=== PATIENT | female | born 1965 | race Two or more races ===

== ENCOUNTER 2016-09-16 07:15 | Outpatient (CLI) | payer BC ==
[~2016-09-16 07:15] MED LIST: ALBU0.633 IH; LANS15CA18 PO
[2016-09-16 08:19] LABS: BASOPHILS % (AUTO) 0.3 % (0.0-2.0); EOSINOPHILS # (AUTO) 0.8 /CMM (0.0-0.7); EOSINOPHILS % (AUTO) 10.1 % (0.0-6.0); HEMATOCRIT 27 % (33-45); LYMPHOCYTES # (AUTO) 2.1 /CMM (0.8-4.8); LYMPHOCYTES % (AUTO) 27.2 % (20.0-44.0); MEAN CORPUSCULAR HEMOGLOBIN 18 PG (26.0-33.0); MEAN CORPUSCULAR HGB CONC 30 g/dl (31.0-36.0); MEAN CORPUSCULAR VOLUME 60 fL (82-100); MONOCYTES # (AUTO) 0.6 /CMM (0.1-1.30); MONOCYTES % (AUTO) 7.6 % (2.0-12.0); NEUTROPHILS # (AUTO) 4.3 /CMM (1.8-8.9); NEUTROPHILS % (AUTO) 54.8 % (43.0-81.0); PLATELET COUNT (AUTO) 408 /CMM (150-450); RDW COEFFICIENT OF VARIATION 20.4 (11.5-15.0); RED BLOOD CELL COUNT(AUTO) 4.48 MIL/uL (4.0-5.2); WHITE BLOOD COUNT (AUTO) 7.9 K/uL (4.3-11.0)
[2016-09-16 08:26] LABS: BILIRUBIN,TOTAL 0.2 mg/dL (0.2-1.0); TOTAL PROTEIN, SERUM 8.3 g/dL (6.4-8.2)
[2016-09-16 08:37] LABS: ALBUMIN 3.8 g/dL (3.4-5.0); CALCIUM, SERUM 8.4 mg/dL (8.5-10.1); CREATININE 0.6 mg/dL (0.6-1.3); MAGNESIUM 2.1 mg/dL (1.8-2.4)
[2016-09-16 08:40] LABS: FREE T4 (FREE THYROXINE) 1.06 ng/dL (0.76-1.46); THYROID STIMULATING HORMONE 1.95 uIU/mL (0.358-3.74)
[2016-09-16 09:47] LABS: APPEARANCE,URINE SL CLOUDY (CLEAR); BILIRUBIN,URINE NEGATIVE (NEGATIVE); BLOOD, URINE 3+ Ery/uL (NEGATIVE); COLOR,URINE YELLOW (YELLOW); KETONES,URINE NEGATIVE (NEGATIVE); LEUKOCYTE ESTERASE ,URINE 2+ (NEGATIVE); NITRITE, URINE NEGATIVE (NEGATIVE); PROTEIN,URINE NEGATIVE (NEGATIVE); UGLUCOSE NEGATIVE (NEGATIVE); UROBILINOGEN,URINE 0.2 EU/dL (0.2)
[2016-09-16 10:21] LABS: RBC,URINE 21-50 /HPF (0-2)
[2016-09-16 10:22] LABS: ADD URINE CULTURE YES; BACTERIA,URINE Few /HPF (None Seen); SQUAMOUS EPITHELIAL CELL,UR Moderate /HPF (None Seen)
[2016-09-16 11:21] LABS: BAND % (MANUAL) 4 % (0.0-5.0); EOSINOPHILS % (MANUAL) 7 % (0-4); LYMPHOCYTES % (MANUAL) 22 % (16-48); MONOCYTES % (MANUAL) 2 % (0-11.0); NEUTROPHILS % (MANUAL) 65 (42-76); PLATELET ESTIMATE INCREASED
[2016-09-16 11:22] LABS: ANISOCYTOSIS 1+; HYPOCHROMASIA 1+; OVALOCYTES 1+
== END 2016-09-16 23:59 | disposition home or self-care (01) ==
LOC: LAB 07:15
PROVIDERS: ATTEND Family Medicine
DX: E55.9 Vitamin D deficiency, unspecified (principal); R73.9 Hyperglycemia, unspecified
CPT/HCPCS: 36415; 80053-TC; 80061-TC; 81000-TC; 82306; 83735-TC; 84439-TC; 84443-TC; 85025-TC; 87086-TC

== ENCOUNTER 2016-11-07 07:54 | Outpatient (CLI) | payer BC | END 2016-11-07 23:59 | disposition home or self-care (01) | LOC: US 07:54 | PROVIDERS: ATTEND Family Medicine | DX: N88.8 Other specified noninflammatory disorders of cervix uteri (principal) | CPT/HCPCS: 76856-TC ==

== ENCOUNTER 2017-07-14 07:32 | Outpatient (CLI) | payer BC ==
[2017-07-14 08:23] LABS: BILIRUBIN,TOTAL 0.5 mg/dL (0.2-1.0); CALCIUM, SERUM 8.9 mg/dL (8.5-10.1); CREATININE 0.6 mg/dL (0.6-1.3); POTASSIUM 3.6 mmol/L (3.5-5.1); TOTAL PROTEIN, SERUM 8.8 g/dL (6.4-8.2)
[2017-07-14 08:27] LABS: T4 (THYROXINE) 10.4 ug/dL (4.7-13.3)
[2017-07-14 08:37] LABS: HEMATOCRIT 31 % (33-45); HEMOGLOBIN 9.3 g/dL (11.5-14.8); MEAN CORPUSCULAR HEMOGLOBIN 19 PG (26.0-33.0); MEAN CORPUSCULAR HGB CONC 30 g/dl (31.0-36.0); MEAN CORPUSCULAR VOLUME 62 fL (82-100); PLATELET COUNT (AUTO) 412 /CMM (150-450); RDW COEFFICIENT OF VARIATION 21.7 (11.5-15.0); RED BLOOD CELL COUNT(AUTO) 4.97 MIL/uL (4.0-5.2); WHITE BLOOD COUNT (AUTO) 6.2 K/uL (4.3-11.0)
[2017-07-14 08:43] LABS: APPEARANCE,URINE SL CLOUDY (CLEAR); BILIRUBIN,URINE NEGATIVE (NEGATIVE); BLOOD, URINE 3+ Ery/uL (NEGATIVE); COLOR,URINE YELLOW (YELLOW); KETONES,URINE NEGATIVE (NEGATIVE); LEUKOCYTE ESTERASE ,URINE NEGATIVE (NEGATIVE); NITRITE, URINE NEGATIVE (NEGATIVE); PROTEIN,URINE TRACE mg/dl (NEGATIVE); UGLUCOSE NEGATIVE (NEGATIVE); UROBILINOGEN,URINE 0.2 EU/dL (0.2)
[2017-07-14 08:48] LABS: THYROID STIMULATING HORMONE 1.188 uIU/mL (0.358-3.74)
[2017-07-14 09:13] LABS: BACTERIA,URINE Rare /HPF (None Seen); RBC,URINE 81-100 /HPF (0-2); SQUAMOUS EPITHELIAL CELL,UR Few /HPF (None Seen); WBC,URINE 0-2 /HPF (0-3)
[2017-07-14 14:48] LABS: BAND % (MANUAL) 2 % (0.0-5.0); EOSINOPHILS % (MANUAL) 5 % (0-4); LYMPHOCYTES % (MANUAL) 17 % (16-48); MONOCYTES % (MANUAL) 11 % (0-11.0); NEUTROPHILS % (MANUAL) 65 (42-76)
== END 2017-07-14 23:59 | disposition home or self-care (01) ==
LOC: LAB 07:32
PROVIDERS: ATTEND Family Medicine
DX: Z11.59 Encounter for screening for other viral diseases (principal); E55.9 Vitamin D deficiency, unspecified; R73.9 Hyperglycemia, unspecified; R06.02 Shortness of breath
CPT/HCPCS: 36415; 71046; 80053-TC; 80061-TC; 81000-TC; 82306; 84436-TC; 84443-TC; 85025-TC; 86803

== ENCOUNTER 2018-10-20 08:24 | Emergency (ER) | payer SELFPAY ==
[~2018-10-20] VITALS: Ht 157.5 cm; Wt 81.6 kg
--- NOTE | 2018-10-20 08:32 | NUR ---
AAOX3 C/O LEFT WRIST PAIN AFTER AN AGGRESSIVE/AGITATED GPS PATIENT GRAB HER LEFT WRIST. CMS WNL. RR IS EVEN AND UNLABORED WITH NAD NOTED. SKIN IS WARM AND DRY. AWAITING MD FOR EVAL.
--- NOTE | 2018-10-20 08:37 | NUR ---
DR PATTON AT BS FOR EVAL.
[2018-10-20] MEDS: IBUPROFEN 600 MG TABLET PO ONE (08:44)
[2018-10-20] MEDS ORDERED: IBUPROFEN 600 MG TABLET PO ONE (08:44)
[2018-10-20 08:46] VITALS: BP 138/78
--- NOTE | 2018-10-20 08:46 | NUR ---
Patient discharged to home in stable condition. Written and verbal after care instructions given. Patient verbalizes understanding of instruction.
== END 2018-10-20 08:47 | disposition home or self-care (01) ==
LOC: ER 08:31
DX: S63.592A Other specified sprain of left wrist, initial encounter (principal); J45.909 Unspecified asthma, uncomplicated; Z90.49 Acquired absence of other specified parts of digestive tract; Z79.899 Other long term (current) drug therapy; Z87.442 Personal history of urinary calculi; Y08.89XA Assault by other specified means, initial encounter; Y93.89 Activity, other specified; Y92.89 Other specified places as the place of occurrence of the external cause; Y99.8 Other external cause status

== ENCOUNTER 2020-03-02 08:11 | Outpatient (CLI) | payer BC ==
[2020-03-02 09:34] LABS: BASOPHILS # (AUTO) 0.1 /CMM (0.0-0.2); BASOPHILS % (AUTO) 1.1 % (0.0-2.0); EOSINOPHILS % (AUTO) 10.3 % (0.0-6.0); HEMATOCRIT 41 % (33-45); HEMOGLOBIN 13.3 g/dL (11.5-14.8); LYMPHOCYTES # (AUTO) 1.6 /CMM (0.8-4.8); LYMPHOCYTES % (AUTO) 25.9 % (20.0-44.0); MEAN CORPUSCULAR HGB CONC 33 g/dl (31.0-36.0); MEAN CORPUSCULAR VOLUME 85 fL (82-100); MONOCYTES # (AUTO) 0.6 /CMM (0.1-1.30); MONOCYTES % (AUTO) 9.4 % (2.0-12.0); NEUTROPHILS # (AUTO) 3.2 /CMM (1.8-8.9); NEUTROPHILS % (AUTO) 53.3 % (43.0-81.0); PLATELET COUNT (AUTO) 255 /CMM (150-450); RED BLOOD CELL COUNT(AUTO) 4.78 MIL/uL (4.0-5.2)
[2020-03-02 09:35] LABS: APPEARANCE,URINE CLEAR (CLEAR); BILIRUBIN,URINE NEGATIVE (NEGATIVE); BLOOD, URINE TRACE-INTA Ery/uL (NEGATIVE); COLOR,URINE YELLOW (YELLOW); KETONES,URINE NEGATIVE (NEGATIVE); LEUKOCYTE ESTERASE ,URINE SMALL (NEGATIVE); NITRITE, URINE NEGATIVE (NEGATIVE); PROTEIN,URINE NEGATIVE (NEGATIVE); UGLUCOSE NEGATIVE (NEGATIVE); UROBILINOGEN,URINE 0.2 EU/dL (0.2)
[2020-03-02 09:38] LABS: ALBUMIN 3.9 g/dL (3.4-5.0); BILIRUBIN,TOTAL 0.2 mg/dL (0.2-1.0); CALCIUM, SERUM 8.7 mg/dL (8.5-10.1); CREATININE 0.6 mg/dL (0.6-1.3); POTASSIUM 3.8 mmol/L (3.5-5.1); TOTAL PROTEIN, SERUM 8.2 g/dL (6.4-8.2)
[2020-03-02 09:48] LABS: FREE T4 (FREE THYROXINE) 1.12 ng/dL (0.76-1.46); THYROID STIMULATING HORMONE 1.4 uIU/mL (0.358-3.74)
[2020-03-02 13:07] LABS: BACTERIA,URINE None seen /HPF (None Seen); SQUAMOUS EPITHELIAL CELL,UR Few /HPF (None Seen)
== END 2020-03-02 23:59 | disposition home or self-care (01) ==
LOC: LAB 08:11
PROVIDERS: ATTEND Family Medicine
DX: M17.12 Unilateral primary osteoarthritis, left knee (principal); M25.762 Osteophyte, left knee; M25.552 Pain in left hip; Z00.01 Encounter for general adult medical examination with abnormal findings
CPT/HCPCS: 36415; 73502; 73562; 80053-TC; 80061-TC; 81000-TC; 84439-TC; 84443-TC; 85025-TC; 87086-TC

== ENCOUNTER 2020-04-06 08:12 | Outpatient (CLI) | payer BC ==
[2020-04-06 09:53] LABS: BILIRUBIN,URINE NEGATIVE (NEGATIVE); BLOOD, URINE TRACE-INTA Ery/uL (NEGATIVE); COLOR,URINE YELLOW (YELLOW); LEUKOCYTE ESTERASE ,URINE TRACE (NEGATIVE); NITRITE, URINE NEGATIVE (NEGATIVE); PROTEIN,URINE NEGATIVE (NEGATIVE); UGLUCOSE NEGATIVE (NEGATIVE); UROBILINOGEN,URINE 0.2 EU/dL (0.2)
[2020-04-06 11:35] LABS: BACTERIA,URINE None seen /HPF (None Seen); RBC,URINE 0-2 /HPF (0-2); SQUAMOUS EPITHELIAL CELL,UR Few /HPF (None Seen); WBC,URINE 0-2 /HPF (0-3)
== END 2020-04-06 23:59 | disposition home or self-care (01) ==
LOC: LAB 08:12
PROVIDERS: ATTEND Family Medicine
DX: I10 Essential (primary) hypertension (principal); R73.9 Hyperglycemia, unspecified; K29.70 Gastritis, unspecified, without bleeding
CPT/HCPCS: 36415; 81001; 86677

== ENCOUNTER 2020-04-09 08:55 | Outpatient (CLI) | payer BC | END 2020-04-09 23:59 | disposition home or self-care (01) | LOC: US 08:55 | PROVIDERS: ATTEND Family Medicine | DX: R31.9 Hematuria, unspecified (principal); Z90.49 Acquired absence of other specified parts of digestive tract | CPT/HCPCS: 76700-TC ==

== ENCOUNTER 2020-04-26 10:54 | Inpatient (IN) | payer BC, OTHER ==
[~2020-04-26] VITALS: Ht 157.5 cm; Wt 81.6 kg
[2020-04-26] MEDS ORDERED: DEXAMETHASONE SOD PHOSPHATE 10 MG/ML VIAL IV ONE (12:00)
[2020-04-26] MEDS ORDERED: IV NS 0.9% 500 ML BAG IV ONE (12:00)
[2020-04-26 12:29] LABS: BASOPHILS % (AUTO) 1.1 % (0.0-2.0); HEMATOCRIT 42 % (33-45); LYMPHOCYTES % (AUTO) 24.4 % (20.0-44.0); MEAN CORPUSCULAR HGB CONC 33 g/dl (31.0-36.0); MEAN CORPUSCULAR VOLUME 86 fL (82-100); MONOCYTES # (AUTO) 0.5 /CMM (0.1-1.30); MONOCYTES % (AUTO) 13.1 % (2.0-12.0); NEUTROPHILS # (AUTO) 2.3 /CMM (1.8-8.9); NEUTROPHILS % (AUTO) 58.4 % (43.0-81.0); PLATELET COUNT (AUTO) 190 /CMM (150-450); RED BLOOD CELL COUNT(AUTO) 4.88 MIL/uL (4.0-5.2)
[2020-04-26] MEDS ORDERED: ALBU90AE INH (12:32)
[2020-04-26] MEDS ORDERED: LANS30CA56 PO (12:32)
[2020-04-26 12:34] LABS: CALCIUM, SERUM 9.3 mg/dL (8.5-10.1); CARBON DIOXIDE 28 mmol/L (21-32); CHLORIDE 101 mmol/L (98-107); CREATININE 0.8 mg/dL (0.6-1.3); GLUCOSE 125 mg/dL (74-106); POTASSIUM 3.3 mmol/L (3.5-5.1); SODIUM SERUM 139 mmol/L (136-145); UREA NITROGEN, BLOOD 6 mg/dL (7-18)
[2020-04-26 12:43] LABS: ALANINE AMINOTRANSFERASE 70 U/L (12-78); ALBUMIN 3.8 g/dL (3.4-5.0); ALKALINE PHOSPHATASE 75 U/L (46-116); ASPARTATE AMINOTRANSFERASE 43 U/L (15-37); B-TYPE NATRIURETIC PEPTIDE 11 PG/ML (0-125); BILIRUBIN,DIRECT 0.1 mg/dL (0.0-0.2); BILIRUBIN,TOTAL 0.3 mg/dL (0.2-1.0); TOTAL PROTEIN, SERUM 8.5 g/dL (6.4-8.2)
[2020-04-26] MEDS ORDERED: DEXAMETHASONE SOD PHOSPHATE 10 MG/ML VIAL ONE (13:38)
--- NOTE | 2020-04-26 15:51 | NUR ---
ROOM 205-1
--- NOTE | 2020-04-26 16:50 | NUR ---
covid antigen collected. sent to lab
--- NOTE | 2020-04-26 18:28 | NUR ---
report given to scott parkinson rn at [facility]
--- NOTE | 2020-04-26 18:39 | NUR ---
pt transferred to 205
--- NOTE | 2020-04-26 18:40 | NUR ---
RECEIVED PT FROM ER WITH DX OF PNA D/T COVID 19.NO SOB ON ROOM AIR.DENIES ANY PAIN OR DISTRESS AT THIS TIME.CALL LIGHT PLACED WITHIN REACH.
--- NOTE | 2020-04-26 19:00 | NUR ---
HUMAN RESOURCES GENERALISTCLICKER OPERATOR NOTES RECEIVED IN THE ROOM,SITTING ON EDGE OF BED,A/O X4,BREATHING REGULAR,NOT IN ANY FORM OF DISTRESS,DIMINISHED BREATH SOUND ON BOTH LOWER LUNG LUNG FIELD.O2 SAT 97% ON ROOM AIR.SALINE LOCK LEFT AC #20 INTACT AND PATENT.NO SKIN ISSUES.AMBULATE WITH STEADY GAIT.BP ON THE LOW SIDE 99/76.ADMITTED FOR COVID POSITIVE RAPID TEST AWAITING PCR TEST RESULT.WITH KNOWN HX OF KIDNEY STONES,CHOLECYSTECTOMY AND ASTHMA.WITH KNOWN ALLERGY TO NUTS AND LEVAQUIN.CALL LIGHT IN REACH,NEEDS ANTICIPATED.
[2020-04-26 20:00] VITALS: BP 99/76
[2020-04-26] MEDS ORDERED: ACETAMINOPHEN 325 MG TABLET PO PRN (20:00)
[2020-04-26] MEDS ORDERED: ONDANSETRON HCL/PF 4 MG/2 ML VIAL IVP PRN (20:00)
[2020-04-26] MEDS ORDERED: Z GUARD REMEDY 2 OZ OINT TP PRN (20:00)
[2020-04-26] MEDS: ENOXAPARIN SODIUM 40 MG/0.4 ML DISP.SYRIN SQ SCH (21:00)
[2020-04-26] MEDS: CEFTRIAXONE 1 G in IV D5W 50 ML IV SCH (21:11)
--- NOTE | 2020-04-26 21:11 | NUR ---
YOUTH CARE SPECIALIST NOTES JUDIE MOLINA
[2020-04-26] MEDS: AZITHROMYCIN 500 MG in IV D5W 250 ML IV SCH (22:00)
--- NOTE | 2020-04-26 22:00 | NUR ---
CHLORINATION OPERATOR NOTES DUE ZITHROMAX 500MG IV HUNG
--- NOTE | 2020-04-26 22:00 | NUR ---
DIRECTOR WOMEN NOTES SR-90 ON TELE MONITOR
[2020-04-27] VITALS: BP 126/67
[2020-04-27 04:00] VITALS: BP 113/74
--- NOTE | 2020-04-27 06:20 | NUR ---
MANAGER STRATEGIC SOURCING NOTES ON BED SLEEPING,REFUSED EARLY BLOOD DRAW.NO EPISODE OF SOB NOTED,IV ABX TOLERATED WELL.,CALL LIGHT IN REACH,NEEDS ATTENDED..WILL ENDORSE TO DAY NURSE FOR JONY.
--- NOTE | 2020-04-27 07:30 | NUR ---
TELE/RN OPENING NOTE Received patient resting in bed, A&O X 4. No complaints of pain/discomfort at this time. Breathing even and non-labored on RA, no respiratory distress noted. No cardiac distress noted. On tele monitor, reading SR 74. IV access noted on L AC #20g, patent and intact, and flushing well. Sensation from all peripheral extremities intact. Side rails x 2 up, bed locked to its lowest position, call light in hand. Will continue with current medical management.
[2020-04-27 08:00] VITALS: BP 113/56
[2020-04-27] MEDS: PANTOPRAZOLE 40 MG TABLET.DR PO SCH (08:25)
[2020-04-27] MEDS: DEXAMETHASONE SOD PHOSPHATE 10 MG/ML VIAL IV SCH (08:26)
[2020-04-27] MEDS: ENOXAPARIN SODIUM 40 MG/0.4 ML DISP.SYRIN SQ SCH ×2 (08:28→21:34)
[2020-04-27 08:50] LABS: BASOPHILS % (AUTO) 0.1 % (0.0-2.0); EOSINOPHILS % (AUTO) 0.1 % (0.0-6.0); HEMATOCRIT 41 % (33-45); HEMOGLOBIN 13.6 g/dL (11.5-14.8); LYMPHOCYTES # (AUTO) 0.8 /CMM (0.8-4.8); LYMPHOCYTES % (AUTO) 22.3 % (20.0-44.0); MEAN CORPUSCULAR HGB CONC 33 g/dl (31.0-36.0); MEAN CORPUSCULAR VOLUME 86 fL (82-100); MONOCYTES # (AUTO) 0.6 /CMM (0.1-1.30); MONOCYTES % (AUTO) 16.3 % (2.0-12.0); NEUTROPHILS # (AUTO) 2.1 /CMM (1.8-8.9); NEUTROPHILS % (AUTO) 61.2 % (43.0-81.0); PLATELET COUNT (AUTO) 205 /CMM (150-450); RED BLOOD CELL COUNT(AUTO) 4.81 MIL/uL (4.0-5.2); WHITE BLOOD COUNT (AUTO) 3.5 K/uL (4.3-11.0)
[2020-04-27 09:04] LABS: ALBUMIN 3.6 g/dL (3.4-5.0); BILIRUBIN,TOTAL 0.2 mg/dL (0.2-1.0); CALCIUM, SERUM 9.1 mg/dL (8.5-10.1); CREATININE 0.6 mg/dL (0.6-1.3); MAGNESIUM 2.4 mg/dL (1.8-2.4); TOTAL PROTEIN, SERUM 8.2 g/dL (6.4-8.2)
[2020-04-27 09:13] LABS: THYROID STIMULATING HORMONE 0.543 uIU/mL (0.358-3.74)
[2020-04-27 12:00] VITALS: BP 123/74
[2020-04-27] MEDS: ALBUTEROL SULFATE 8 GM HFA.AER.AD IH PRN (12:08)
--- NOTE | 2020-04-27 12:08 | NUR ---
TELE/RN NOTE Patient self-administered albuterol inhaler: 1 puff for SOB. Will continue to monitor.
[2020-04-27 16:00] VITALS: BP 113/77
--- NOTE | 2020-04-27 17:36 | NUR ---
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 Has good family and friends support. No dc planning needs identified at this time Addendum: 04/27/20 at 1736 by QUE MCLEAN RN Amended: Links added.
--- NOTE | 2020-04-27 18:30 | NUR ---
TELE/RN NOTE Lab reported COVID PCR test result: positive. Notified Dr. Babak Sagastume.
--- NOTE | 2020-04-27 19:30 | NUR ---
TELE/RN CLOSING NOTE Patient resting in bed, A&O X 4. All needs met and attended to. No complaints of pain/discomfort at this time. Breathing even and non-labored on RA, no respiratory distress noted. No cardiac distress noted. On tele monitor, reading SR 89. IV access noted on L AC #20g, patent and intact, and flushing well. Sensation from all peripheral extremities intact. Fall precautions maintained. Will endorse to applications sales representative nurse.
[2020-04-27 20:00] VITALS: BP_SYST 110; BP_SYST 118; BP_DIAS 76; BP_DIAS 77
--- NOTE | 2020-04-27 20:00 | NUR ---
RN OPENING NOTE: Patient in bed resting comfortably. Patient awake, alert, and oriented x4, able to make needs known. Patient breathing even and unlabored on room air. No SOB or acute respiratory distress noted. Noted IV access on left AC, 20 gauge, patent, no erythema or infiltration. Observed patient ambulate with steady gait. Safety measure in place, bed is in the lowest level, bed is locked, side rails x2 are up, and call light is within reach. Will continue to monitor.
[2020-04-27] MEDS: AZITHROMYCIN 500 MG in IV D5W 250 ML IV SCH (21:33)
[2020-04-27] MEDS: CEFTRIAXONE 1 G in IV D5W 50 ML IV SCH (21:33)
[2020-04-28] VITALS: BP_SYST 122; BP_SYST 123; BP_DIAS 74; BP_DIAS 75
[2020-04-28 04:00] VITALS: BP 102/60
[2020-04-28 06:48] LABS: BASOPHILS % (AUTO) 0.1 % (0.0-2.0); HEMATOCRIT 39 % (33-45); HEMOGLOBIN 12.9 g/dL (11.5-14.8); LYMPHOCYTES # (AUTO) 1.4 /CMM (0.8-4.8); LYMPHOCYTES % (AUTO) 14.8 % (20.0-44.0); MEAN CORPUSCULAR HGB CONC 33 g/dl (31.0-36.0); MEAN CORPUSCULAR VOLUME 85 fL (82-100); MONOCYTES # (AUTO) 0.7 /CMM (0.1-1.30); MONOCYTES % (AUTO) 7.2 % (2.0-12.0); NEUTROPHILS # (AUTO) 7.2 /CMM (1.8-8.9); NEUTROPHILS % (AUTO) 77.9 % (43.0-81.0); PLATELET COUNT (AUTO) 216 /CMM (150-450); RED BLOOD CELL COUNT(AUTO) 4.56 MIL/uL (4.0-5.2); WHITE BLOOD COUNT (AUTO) 9.2 K/uL (4.3-11.0)
[2020-04-28 07:06] LABS: CALCIUM, SERUM 8.6 mg/dL (8.5-10.1); CREATININE 0.6 mg/dL (0.6-1.3); MAGNESIUM 2.4 mg/dL (1.8-2.4); PHOSPHORUS 3.6 mg/dL (2.5-4.9); POTASSIUM 3.2 mmol/L (3.5-5.1)
--- NOTE | 2020-04-28 07:15 | NUR ---
FLOORWORKER LASTING NOTES RECEIVED PATIENT IN BED , ALERT AND AWAKE ORIENTED X4. HOB ELEVATED. DENIES ANY C/O PAIN NOR DISCOMFORT. ON ROOM AIR WITHOUT S/S OF SOB. BD IN LOWEST POSITION ,LOCKED. BED ALARM ON.CALL LIGHT WITHIN REACH. ABLE TO VERBALIZE NEEDS.
[2020-04-28 08:00] VITALS: BP 106/74
[2020-04-28] MEDS: DEXAMETHASONE SOD PHOSPHATE 10 MG/ML VIAL IV SCH (08:21)
[2020-04-28] MEDS: PANTOPRAZOLE 40 MG TABLET.DR PO SCH (08:21)
[2020-04-28] MEDS: ENOXAPARIN SODIUM 40 MG/0.4 ML DISP.SYRIN SQ SCH ×2 (08:22→20:57)
--- NOTE | 2020-04-28 08:32 | NUR ---
RN CLOSING NOTE: Patient in bed resting comfortably. Patient breathing even and unlabored, no SOB or acute respiratory distress noted. Safety measure is maintained, bed is in the lowest level, bed is locked, side rails x2 are up, and call light is within reach. Endorsed to morning RN.
[2020-04-28] MEDS ORDERED: POTASSIUM CHLORIDE 20 MEQ TAB.PRT.SR PO SCH (11:30)
[2020-04-28] MEDS: POTASSIUM CHLORIDE 20 MEQ TAB.PRT.SR PO SCH ×2 (11:55→13:40)
[2020-04-28 12:00] VITALS: BP 122/75
[2020-04-28] MEDS: ALBUTEROL SULFATE 8 GM HFA.AER.AD IH PRN (12:14)
[2020-04-28] MEDS ORDERED: GUAIFENESIN/D-METHORPHAN HB 5 ML UDC PO PRN (13:00)
--- NOTE | 2020-04-28 19:00 | NUR ---
SLEEPING ROOM CLEANER NOTES PATIENT RESTING COMFORTABLY IN BED WATCHING ON CELL PHONE. HOB ELEVATED. DENIES ANY C/O PAIN NOR DISCOMFORT. NO S/S OF RESPIRATORY DISTRESS. AMBULATORY WITH STEADY GAIT. REMAIN ON TELE MONITORING: SR: 75. LEFT AC SL # 20 INTACT AND PATENT. BED IN LOWEST POSITION ,LOCKED. BED ALARM ON.CALL LIGHT WITHIN REACH. ABLE TO VERBALIZE NEEDS. IN NO APPARENT DISTRESS.
--- NOTE | 2020-04-28 19:43 | NUR ---
RN OPENING NOTE: Patient in bed resting comfortable. Patient awake, alert, and oriented x4, able to make needs known. Patient breathing even and unlabored on room air. No SOB or acute respiratory distress noted. IV access noted on left AC, 20 gauge,intact and patent. Safety measure in place, bed is in the lowest level, bed is locked, side rails x2 are up, and call light is within reach. Will continue to monitor.
[2020-04-28 20:00] VITALS: BP 105/74
[2020-04-28] MEDS: CEFTRIAXONE 1 G in IV D5W 50 ML IV SCH (20:56)
[2020-04-28] MEDS: AZITHROMYCIN 500 MG in IV D5W 250 ML IV SCH (21:02)
[2020-04-29] VITALS: BP 119/70
[2020-04-29 05:00] VITALS: BP 118/75
[2020-04-29 05:57] LABS: BASOPHILS % (AUTO) 0.2 % (0.0-2.0); HEMATOCRIT 39 % (33-45); HEMOGLOBIN 13.2 g/dL (11.5-14.8); LYMPHOCYTES # (AUTO) 1.7 /CMM (0.8-4.8); LYMPHOCYTES % (AUTO) 17.2 % (20.0-44.0); MEAN CORPUSCULAR HGB CONC 33 g/dl (31.0-36.0); MEAN CORPUSCULAR VOLUME 86 fL (82-100); MONOCYTES # (AUTO) 1.1 /CMM (0.1-1.30); MONOCYTES % (AUTO) 11.3 % (2.0-12.0); NEUTROPHILS # (AUTO) 7.2 /CMM (1.8-8.9); NEUTROPHILS % (AUTO) 71.3 % (43.0-81.0); PLATELET COUNT (AUTO) 234 /CMM (150-450); RED BLOOD CELL COUNT(AUTO) 4.58 MIL/uL (4.0-5.2); WHITE BLOOD COUNT (AUTO) 10.1 K/uL (4.3-11.0)
[2020-04-29 06:00] VITALS: BP 118/75
[2020-04-29 06:28] LABS: CALCIUM, SERUM 8.2 mg/dL (8.5-10.1); CREATININE 0.5 mg/dL (0.6-1.3); MAGNESIUM 2.6 mg/dL (1.8-2.4); PHOSPHORUS 3.5 mg/dL (2.5-4.9); POTASSIUM 3.3 mmol/L (3.5-5.1)
[2020-04-29] MEDS: PANTOPRAZOLE 40 MG TABLET.DR PO SCH (06:38)
--- NOTE | 2020-04-29 07:25 | NUR ---
SPORTS ATTORNEY NOTES RECEIVED PATIENT IN BED , ALERT AND AWAKE ORIENTED X4. HOB ELEVATED. DENIES ANY C/O PAIN NOR DISCOMFORT. ON ROOM AIR WITHOUT S/S OF SOB. BD IN LOWEST POSITION ,LOCKED. BED ALARM ON.CALL LIGHT WITHIN REACH. ABLE TO VERBALIZE NEEDS. AMBULATES IN ROOM WITHOUT PROBLEMS.
--- NOTE | 2020-04-29 07:54 | NUR ---
RN CLOSING NOTE: Patient resting in bed comfortably. Patient is breathing even and unlabored. No SOB or acute respiratory distress noted. Safety measure maintained; bed is in the lowest level, bed is locked, alarm is on, side rails x2 are up, and call light is within reach. Endorsed to AM nurse.
[2020-04-29 08:00] VITALS: BP 112/72
[2020-04-29] MEDS: DEXAMETHASONE SOD PHOSPHATE 10 MG/ML VIAL IV SCH (08:23)
[2020-04-29] MEDS: ENOXAPARIN SODIUM 40 MG/0.4 ML DISP.SYRIN SQ SCH (08:24)
[2020-04-29] MEDS ORDERED: POTASSIUM CHLORIDE 20 MEQ TAB.PRT.SR PO SCH (11:30)
[2020-04-29] MEDS ORDERED: ALBU90AE INH (14:05)
[2020-04-29] MEDS ORDERED: PRED20TA PO (14:05)
--- NOTE | 2020-04-29 17:30 | NUR ---
TIME RECORDER NOTES PATIENT FOR DISCHARGE. DISCHARGE PACKET/EDUCATION/TEACHINGS PROVIDED. IV ACCESS REMOVED WITH CATHETER TIP INTACT WITH GAUZE DRESSING IN PLACE. ALL BELONGINGS ACCOUNTED FOR. NO S/S OF ACUTE DISTRESS. LEFT IN STABLE CONDITION.
== END 2020-04-29 14:09 | disposition home or self-care (01) | DRG 177 ==
LOC: ER 11:09 → TELE2 16:21
PROVIDERS: ADMIT Nurse Practitioner Acute Care; ATTEND Family Medicine
DX: U07.1 COVID-19 (principal); J96.01 Acute respiratory failure with hypoxia; J12.89 Other viral pneumonia; E87.6 Hypokalemia; E66.01 Morbid (severe) obesity due to excess calories; J45.909 Unspecified asthma, uncomplicated; Z90.49 Acquired absence of other specified parts of digestive tract; Z87.442 Personal history of urinary calculi; Z79.51 Long term (current) use of inhaled steroids; Z79.899 Other long term (current) drug therapy; R74.01 Elevation of levels of liver transaminase levels; N20.0 Calculus of kidney; Z68.32 Body mass index [BMI] 32.0-32.9, adult; Z82.49 Family history of ischemic heart disease and other diseases of the circulatory system; Z82.5 Family history of asthma and other chronic lower respiratory diseases
CPT/HCPCS: 36415; 71045-TC; 80048-TC; 80053-TC; 80061-TC; 80076-TC; 82728-TC; 83540-TC; 83605-TC; 83615-TC; 83735-TC; 83880; 84100-TC; 84443-TC; 84484-TC; 85025-TC; 85378-TC; 85730-TC; 86140; 87040-TC; 87081-TC; 93308-TC; G0378; J0456; J0696; J1100; J1650; J7050; J7060; U0003

== ENCOUNTER 2020-07-12 10:55 | Outpatient (CLI) | payer BC ==
[~2020-07-12 10:55] MED LIST changes: -ALBU0.633 IH; +ALBU90AE INH; -LANS15CA18 PO; +LANS30CA56 PO; +PRED20TA PO
== END 2020-07-12 23:59 | disposition home or self-care (01) ==
LOC: WOU 10:55
PROVIDERS: ATTEND Surgery
DX: C50.212 Malignant neoplasm of upper-inner quadrant of left female breast (principal); Z80.3 Family history of malignant neoplasm of breast
CPT/HCPCS: G0463

== ENCOUNTER 2020-07-26 10:40 | Outpatient (CLI) | payer BC | END 2020-07-26 23:59 | disposition home or self-care (01) | LOC: WOU 10:40 | PROVIDERS: ATTEND Surgery | DX: C50.212 Malignant neoplasm of upper-inner quadrant of left female breast (principal) | CPT/HCPCS: G0463 ==

== ENCOUNTER → 2020-08-02 | Outpatient (CLI) | payer BC | END | disposition home or self-care (01) | LOC: WOU 10:45 | PROVIDERS: ATTEND Surgery | DX: C50.212 Malignant neoplasm of upper-inner quadrant of left female breast (principal); R92.8 Other abnormal and inconclusive findings on diagnostic imaging of breast | CPT/HCPCS: 11043; G0463 ==

== ENCOUNTER 2020-08-10 08:32 | Outpatient (CLI) | payer BC ==
[2020-08-10 09:34] LABS: CREATININE 0.6 mg/dL (0.6-1.3)
[2020-08-10] MEDS ORDERED: CT SWABBABLE VALVE TRANS SET 1 EA INFUS.SET MC ONE (09:56)
[2020-08-10] MEDS ORDERED: IV NS 0.9% 250 ML IV ONE (09:56)
[2020-08-10] MEDS ORDERED: IOHEXOL-300 100 ML VIAL IV ONE (09:56)
== END 2020-08-10 23:59 | disposition home or self-care (01) ==
LOC: CT 08:32
PROVIDERS: ATTEND Family Medicine
DX: K76.0 Fatty (change of) liver, not elsewhere classified (principal); K76.89 Other specified diseases of liver; K57.30 Diverticulosis of large intestine without perforation or abscess without bleeding; D25.2 Subserosal leiomyoma of uterus; N20.0 Calculus of kidney
CPT/HCPCS: 36415; 74178; 82565; 84520; J7050; Q9967

== ENCOUNTER 2020-09-06 11:30 | Outpatient (CLI) | payer BC | END 2020-09-06 23:59 | disposition home or self-care (01) | LOC: WOU 11:30 | PROVIDERS: ATTEND Surgery | DX: C50.212 Malignant neoplasm of upper-inner quadrant of left female breast (principal); R92.8 Other abnormal and inconclusive findings on diagnostic imaging of breast | CPT/HCPCS: G0463 ==

== ENCOUNTER 2020-09-11 08:29 | Outpatient (CLI) | payer BC ==
[2020-09-11 10:08] LABS: BASOPHILS % (AUTO) 0.7 % (0.0-2.0); EOSINOPHILS % (AUTO) 10.1 % (0.0-6.0); HEMATOCRIT 42 % (33-45); HEMOGLOBIN 13.9 g/dL (11.5-14.8); LYMPHOCYTES # (AUTO) 1.8 /CMM (0.8-4.8); MEAN CORPUSCULAR HGB CONC 33 g/dl (31.0-36.0); MEAN CORPUSCULAR VOLUME 87 fL (82-100); MONOCYTES # (AUTO) 0.6 /CMM (0.1-1.30); MONOCYTES % (AUTO) 8.7 % (2.0-12.0); NEUTROPHILS % (AUTO) 55.5 % (43.0-81.0); PLATELET COUNT (AUTO) 276 /CMM (150-450); RED BLOOD CELL COUNT(AUTO) 4.81 MIL/uL (4.0-5.2); WHITE BLOOD COUNT (AUTO) 7.3 K/uL (4.3-11.0)
[2020-09-11 10:12] LABS: BILIRUBIN,URINE NEGATIVE (NEGATIVE); COLOR,URINE YELLOW (YELLOW); LEUKOCYTE ESTERASE ,URINE LARGE (NEGATIVE); NITRITE, URINE NEGATIVE (NEGATIVE); PH,URINE 5.5 (5.0-8.0); PROTEIN,URINE NEGATIVE (NEGATIVE); UGLUCOSE NEGATIVE (NEGATIVE); UROBILINOGEN,URINE 0.2 EU/dL (0.2)
[2020-09-11 10:24] LABS: WBC,URINE 81-100 /HPF (0-3)
[2020-09-11 10:25] LABS: BACTERIA,URINE Few /HPF (None Seen)
[2020-09-11 10:26] LABS: SQUAMOUS EPITHELIAL CELL,UR Few /HPF (None Seen)
[2020-09-11 10:37] LABS: ALBUMIN 3.9 g/dL (3.4-5.0); BILIRUBIN,TOTAL 0.3 mg/dL (0.2-1.0); CREATININE 0.5 mg/dL (0.6-1.3); POTASSIUM 3.8 mmol/L (3.5-5.1); TOTAL PROTEIN, SERUM 8.1 g/dL (6.4-8.2)
== END 2020-09-11 23:59 | disposition home or self-care (01) ==
LOC: LAB 08:29
PROVIDERS: ATTEND Family Medicine
DX: Z01.818 Encounter for other preprocedural examination (principal); K21.9 Gastro-esophageal reflux disease without esophagitis; D05.12 Intraductal carcinoma in situ of left breast; R16.0 Hepatomegaly, not elsewhere classified; J30.9 Allergic rhinitis, unspecified
CPT/HCPCS: 36415; 71046; 80053-TC; 81001; 83970; 84133-TC; 84300-TC; 84550-TC; 85025-TC; 85610-TC; 85730-TC; 87086-TC; 87186-TC

== ENCOUNTER 2020-09-17 11:07 | Outpatient (CLI) | payer BC | END 2020-09-17 23:59 | disposition home or self-care (01) | LOC: LAB 11:07 | PROVIDERS: ATTEND Surgery | DX: Z01.812 Encounter for preprocedural laboratory examination (principal); Z20.822 Contact with and (suspected) exposure to COVID-19; C50.212 Malignant neoplasm of upper-inner quadrant of left female breast | CPT/HCPCS: C9803; U0003 ==

== ENCOUNTER 2020-09-19 09:46 | Outpatient (CLI) | payer BC ==
[2020-09-20] MEDS ORDERED: MONT10TA22 PO (14:08)
== END 2020-09-19 23:59 | disposition home or self-care (01) ==
LOC: RAD 09:46
PROVIDERS: ATTEND Surgery
DX: C50.912 Malignant neoplasm of unspecified site of left female breast (principal)
CPT/HCPCS: 78195; A9541

== ENCOUNTER 2020-09-20 05:17 | Inpatient (IN) | payer BC ==
[~2020-09-20] VITALS: Ht 157.5 cm; Wt 84.4 kg
[2020-09-20] MEDS ORDERED: GENTAMICIN 80 MG/2 ML VIAL ONE (06:39)
[2020-09-20] MEDS ORDERED: CEFAZOLIN 0 GM ONE (06:40)
[2020-09-20] MEDS ORDERED: BUPIVACAINE 0.5 % PF 150 MG/30 ML VIAL ONE (06:40)
[2020-09-20] MEDS ORDERED: LIDOCAINE HCL/MPF 1% 30 ML VIAL IJ ONE (06:40)
[2020-09-20] MEDS ORDERED: ANESTHESIA TRAY IN PYXIS 1 EA TRAY MC ONE (06:40)
[2020-09-20] MEDS ORDERED: BACITRACIN 50000 UNITS/VIAL ONE (06:41)
[2020-09-20] MEDS ORDERED: NITROGLYCERIN PACKET 1 GM PACKET ONE (06:45)
[2020-09-20] MEDS ORDERED: FENTANYL PF 100MCG/2ML AMPUL ONE (07:00)
[2020-09-20] MEDS ORDERED: HYDROMORPHONE INJ 2 MG/ML DISP.SYRIN ONE (07:01)
[2020-09-20] MEDS ORDERED: METHYLENE BLUE 10 ML VIAL ONE (07:50)
[2020-09-20] MEDS ORDERED: ALBUTEROL FS 2.5 MG/3 ML VIAL.NEB ONE (10:13)
[2020-09-20] MEDS ORDERED: HYDROMORPHONE 1 MG/1 ML DISP.SYRIN ONE (10:54)
--- NOTE | 2020-09-20 11:30 | NUR ---
MS ADMISSION NOTE RECEIVED PATIENT FROM OR S/P LEFT PARTIAL MASTECTOMY AND LYMPH NODE BIOPSY. AWAKE, ALERT ORIENTED X 4. SURGICAL SITE WITH STERI STRIPS CLEAN AND DRY. RECEIVED ADMISSION ORDER FROM DR. WHALEN. ORDERS MADE AND CARRIED OUT. PATIENT ON BED WITH VISITOR. NOT IN RESPIRATORY DISTRESS. WITH IV ACCESS ON RIGHT HAND G22, PATENT AND INTACT. WITH OXYGEN AT 3 LPM FOR COMFORT, WITH OXYGEN SATURATION OF 96-97%. NOT IN DISTRESS.
[2020-09-20] MEDS: oxyCODONE/APAP (5/325 MG) 1 UDTAB TABLET PO SCH (12:00)
[2020-09-20] MEDS ORDERED: MAGNESIUM HYDROXIDE 30 ML UDC PO PRN (13:00)
[2020-09-20] MEDS ORDERED: MAG HYDROX/AL HYDROX/SIMETH 30 ML UDC PO PRN (13:00)
[2020-09-20] MEDS ORDERED: HYDROCODONE/APAP 5/325MG TABLET PO PRN ×2 (13:00→13:30)
[2020-09-20] MEDS ORDERED: Z GUARD REMEDY 2 OZ OINT TP PRN (13:00)
[2020-09-20] MEDS ORDERED: ZOLPIDEM TARTRATE 5 MG TABLET PO PRN (13:00)
[2020-09-20] MEDS ORDERED: ACETAMINOPHEN 325 MG TABLET PO PRN (13:00)
[2020-09-20] MEDS ORDERED: ONDANSETRON HCL/PF 4 MG/2 ML VIAL IVP PRN (13:00)
[2020-09-20] MEDS ORDERED: KETOROLAC TROMETHAMINE INJ 30 MG/ML VIAL IM PRN (13:30)
[2020-09-20] MEDS ORDERED: IV 1/2NS 1000 ML 1,000 ML IV ONE (13:30)
[2020-09-20] MEDS ORDERED: MONT10TA22 PO (14:08)
[2020-09-20] MEDS ORDERED: ALBUTEROL FS 2.5 MG/3 ML VIAL.NEB NEB PRN (15:30)
[2020-09-20] MEDS ORDERED: IPRATROPIUM NEB FS 0.5 MG/2.5 ML AMPUL.NEB NEB PRN (15:30)
[2020-09-20 16:00] VITALS: BP 119/79
[2020-09-20] MEDS: MONTELUKAST SODIUM (10MG) 10 MG TABLET PO SCH (18:00)
--- NOTE | 2020-09-20 18:37 | NUR ---
PATIENT WITH ORAL MEDICATION DUE, BUT VERBALIZE THAT SHE GETS NAUSEATED WHEN SHE TAKES IN ANYTHING PER [place], BUT REFUSED TO GET ANY MEDICATION AT THIS TIME. HEALTH TEACHING DONE REGARDING REFUSAL OF THE MEDICATION. COMFORT MEASURES PROVIDED. WILL CONTINUE MONITORING PATIENT.
--- NOTE | 2020-09-20 18:55 | NUR ---
MS RN CLOSING NOTE PT AWAKE IN BED AT THIS TIME. PT REMAINED STABLE THROUGHOUT SHIFT. ALL CARE, NEEDS, TREATMENT AND MEDICATIONS ADMINISTERED ANTICIPATED PER ORDER. IV ACCESS PATENT AND INTACT ON RIGHT FOREARM COVERED WITH TEGADERM. PT KEPT CLEAN AND DRY. SAFETY PRECAUTIONS IN PLACE AND MAINTAINED AT ALL TIMES. BED IN LOWEST LOCKED POSITION, HOB ELEVATED, SIDE RAILS UP X 2. CALL LIGHT AND TABLE WITHIN REACH. WILL ENDORSE TO DAYLIGHT DRILLER NURSE FOR CONTINUITY OF CARE.
--- NOTE | 2020-09-20 19:30 | NUR ---
MS RN NOTES RECEIVED ON BED AWAKE,ALERT,ORIENTED X4,S/P LEFT PARTIAL MASTECTOMY WITH LYMPH NODE BIOPSY,DRESSING INTACT AND PATENT.,IVF 1/2 NS AT 100ML/HR RATE INFUSING WELL VIA IV PUMP ON RIGHT UPPER SALINE LOCK.PAIN BEARABLE AT THE MOMENT,FEELING NAUSEATED BUT TOLERABLE.DVT PUMP IN USED FOR DVT PROPHYLAXIS.FAMILY MEMBER AT BEDSIDE.ENCOURAGED TO TO USE INCENTIVE SPIROMETRY FOR LUNG EXERCISE,EXPANSION WHILE AWAKE.CALL LIGHT IN REACH,NEEDS ANTICIPATED.
[2020-09-20 20:00] VITALS: BP 122/67
[2020-09-20] MEDS ORDERED: KETOROLAC TROMETHAMINE INJ 30 MG/ML VIAL IV PRN (20:30)
--- NOTE | 2020-09-21 | NUR ---
MS RN NOTES SOUND ASLEEP THIS TIME,PERCOCET HELD.
[2020-09-21 06:28] LABS: BASOPHILS % (AUTO) 0.2 % (0.0-2.0); EOSINOPHILS % (AUTO) 0.3 % (0.0-6.0); HEMATOCRIT 35 % (33-45); HEMOGLOBIN 11.3 g/dL (11.5-14.8); LYMPHOCYTES # (AUTO) 1.4 /CMM (0.8-4.8); LYMPHOCYTES % (AUTO) 10.5 % (20.0-44.0); MEAN CORPUSCULAR HGB CONC 33 g/dl (31.0-36.0); MEAN CORPUSCULAR VOLUME 88 fL (82-100); MONOCYTES % (AUTO) 7.6 % (2.0-12.0); NEUTROPHILS # (AUTO) 10.6 /CMM (1.8-8.9); NEUTROPHILS % (AUTO) 81.4 % (43.0-81.0); PLATELET COUNT (AUTO) 257 /CMM (150-450)
--- NOTE | 2020-09-21 06:50 | NUR ---
MS RN NOTES FAIRLY RESTED AT NIGHT,C/O MILD PAIN ON HER NECK,OFFERED PAIN MANAGEMENT BUT REFUSED.POSSIBLE DISCHARGE TODAY,WITH PRESCRIPTION AT BEDSIDE.IN NO ACUTE DISTRESS.
[2020-09-21 07:08] LABS: CALCIUM, SERUM 8.4 mg/dL (8.5-10.1); CREATININE 0.6 mg/dL (0.6-1.3); MAGNESIUM 2.1 mg/dL (1.8-2.4); PHOSPHORUS 2.4 mg/dL (2.5-4.9); POTASSIUM 3.8 mmol/L (3.5-5.1)
--- NOTE | 2020-09-21 07:32 | NUR ---
MS OPENING NOTES RECEIVED PATIENT IN BED AWAKE, ALERT AND ORIENTED X 4. S/P LEFT PARTIAL MASTECTOMY WITH LYMPH NODE BIOPSY. NO SIGNS OR SYMPTOMS OF DISTRESS NOTED. CALL LIGHT IS WITHIN REACH. SAFETY MEASURES IN PLACE. WILL CONTINUE TO MONITOR THROUGHOUT SHIFT.
[2020-09-21 08:00] VITALS: BP 109/68
[2020-09-21] MEDS: oxyCODONE/APAP (5/325 MG) 1 UDTAB TABLET PO SCH ×2 (12:56)
--- NOTE | 2020-09-21 14:41 | NUR ---
PATIENT IS AWAKE SITTING ON BED. NO COMPLAINTS OF PAIN AT THIS TIME. INSTRUCTED PATIENT TO CONTINUE USE OF SPIROMETER. ALL NEEDS ADDRESSED. WILL CONITNUE TO MONITOR PATIENT AND PAIN LEVEL THROUGHOUT SHIFT.
--- NOTE | 2020-09-21 15:52 | NUR ---
RECEIVED DISCHARGE INSTRUCTIONS FROM DR. LILLI KWONG NO LIFTING MORE THAN 5LBS. FOLLOW-UP WITH DR. LILLI KWONG IN 2 WEEKS (Thursday10/04/20). MAY SHOWER BUT DO NOT SUBMERGE THE OPERATIVE SITE, AVOIDING OPERATIVE AREA. MAY EAT REGULAR FOOD TOLERATED. NO EXERCISE THAT INCREASES HEART RATE AND THAT MAY CAUSE BLEEDING. MAY WEAR BRA FOR COMFORT. DO NOT DRIVE WHILE ON PAIN MEDICATION.
[2020-09-21 16:00] VITALS: BP 132/72
[2020-09-21] MEDS ORDERED: K PHOS NEUTRAL 250 MG TABLET PO ONE (16:30)
[2020-09-21] MEDS: MONTELUKAST SODIUM (10MG) 10 MG TABLET PO SCH (18:30)
--- NOTE | 2020-09-21 19:00 | NUR ---
MS CLOSING RN NOTES PATIENT IN BED AND AWAKE . A/O X4. ON ROOM AIR. NO SIGNS AND SYMPTOMS OF SOB NOTED. NO COMPLAINTS OF PAIN.ALL MEDICATIONS WERE GIVEN ORDERED. ALL NEEDS HAVE BEEN MET AND ATTENDED. SAFETY MEASURES MAINTAINED. BED IN LOWEST POSITION, BRAKES LOCKED. SIDE RAILS UP X2. CALL LIGHT WITHIN REACH. WILL ENDORSE CONTINUITY OF CARE TO ONCOMING NURSE.
[2020-09-21 20:00] VITALS: BP 135/81
--- NOTE | 2020-09-21 20:11 | NUR ---
MS/TELE/RN RECEIVED PATIENT IN ROOM SITTING AT EDGE OF BED AWAKE, ALERT, ORIENTED, COMFORTABLE, NO C/O PAIN, NO DISTRESS NOTE, DRESSING AT LEFT BREAST CLEAN, DRY AND INTACT, WILL MONITOR.
--- NOTE | 2020-09-22 06:18 | NUR ---
MS/TELE/RN PATIENT IS AWAKE, SITTING IN CHAIR AT BEDSIDE, C/O PAIN LEFT BREAST, MEDICATED WITH NORCO 1 TAB PO ORDERED, GOOD SLEEP NOTED DURING THE SHIFT, ALL NEEDS ATTENDED AT THIS TIME, WILL CONTINUE TO MONITOR.
[2020-09-22 07:19] LABS: CREATININE 0.5 mg/dL (0.6-1.3); MAGNESIUM 2.2 mg/dL (1.8-2.4); PHOSPHORUS 3.8 mg/dL (2.5-4.9); POTASSIUM 3.9 mmol/L (3.5-5.1)
[2020-09-22 07:45] LABS: BASOPHILS # (AUTO) 0.1 /CMM (0.0-0.2); BASOPHILS % (AUTO) 0.9 % (0.0-2.0); EOSINOPHILS % (AUTO) 6.2 % (0.0-6.0); HEMATOCRIT 37 % (33-45); HEMOGLOBIN 12.1 g/dL (11.5-14.8); LYMPHOCYTES # (AUTO) 2.2 /CMM (0.8-4.8); LYMPHOCYTES % (AUTO) 23.4 % (20.0-44.0); MEAN CORPUSCULAR HGB CONC 33 g/dl (31.0-36.0); MEAN CORPUSCULAR VOLUME 89 fL (82-100); MONOCYTES # (AUTO) 0.7 /CMM (0.1-1.30); MONOCYTES % (AUTO) 7.4 % (2.0-12.0); NEUTROPHILS # (AUTO) 5.9 /CMM (1.8-8.9); NEUTROPHILS % (AUTO) 62.1 % (43.0-81.0); PLATELET COUNT (AUTO) 276 /CMM (150-450); RED BLOOD CELL COUNT(AUTO) 4.17 MIL/uL (4.0-5.2); WHITE BLOOD COUNT (AUTO) 9.6 K/uL (4.3-11.0)
--- NOTE | 2020-09-22 07:52 | NUR ---
MS RN OPENING NOTE RECEIVED PATIENT SITTING IN THE BED. A/O X 4. AMBULATORY. ON ROOM AIR, NO SOB NOTED. IN NO APPARENT DISTRESS. DENIES ANY PAIN OR DISCOMFORT AT THIS TIME. IV ACCESS ON R FA #22 G, INTACT. SAFETY MEASURES MAINTAINED. BED IN LOWEST POSITION, BRAKES LOCKED. SIDE RAILS UP X2. CALL LIGHT WITHIN REACH. WILL CONTINUE PLAN OF CARE.
[2020-09-22 08:00] VITALS: BP 123/84
[2020-09-22] MEDS: oxyCODONE/APAP (5/325 MG) 1 UDTAB TABLET PO SCH ×2 (11:16)
--- NOTE | 2020-09-22 15:50 | NUR ---
MS RN NOTE PATIENT DISCHARGED. HEALTH TEACHING AND DISCHARGE INSTRUCTIONS WERE GIVEN. PT VERBALIZED UNDERSTANDING. ACCOMPANIED BY , ASSISTED DOWNSTAIRS BY MARIE SHAH. ID WRISTBAND AND IV LINE REMOVED.
== END 2020-09-22 15:45 | disposition home or self-care (01) | DRG 581 ==
LOC: DS 05:17 → MED 11:38
PROVIDERS: ADMIT Surgery; ATTEND Surgery
PROC: 0HBU0ZZ Excision of Left Breast, Open Approach (ICD-10-PCS; principal; 2020-09-20)
PROC: 4A1605H Monitoring of Lymphatic Flow using Indocyanine Green Dye, Open Approach (ICD-10-PCS; 2020-09-20)
PROC: 07B60ZX Excision of Left Axillary Lymphatic, Open Approach, Diagnostic (ICD-10-PCS; 2020-09-20)
DX: C50.912 Malignant neoplasm of unspecified site of left female breast (principal); J45.909 Unspecified asthma, uncomplicated; Z82.49 Family history of ischemic heart disease and other diseases of the circulatory system; Z79.899 Other long term (current) drug therapy; Z79.51 Long term (current) use of inhaled steroids
CPT/HCPCS: 36415; 80048-TC; 83735-TC; 84100-TC; 84703-TC; 85025-TC; 87081-TC; 88305-TC; 88307-TC; 88309-TC; 88360; 97116-TC; 97530-TC; G0378; J0330; J0690; J1170; J1580; J1885; J2405; J2704; J3010; J3490; Q9968

== ENCOUNTER 2020-10-04 10:30 | Outpatient (CLI) | payer BC ==
[~2020-10-04 10:30] MED LIST changes: -ALBU90AE INH; +MONT10TA22 PO; -PRED20TA PO
== END 2020-10-04 23:59 | disposition home or self-care (01) ==
LOC: WOU 10:30
PROVIDERS: ATTEND Surgery
DX: Z48.3 Aftercare following surgery for neoplasm (principal); C50.212 Malignant neoplasm of upper-inner quadrant of left female breast
CPT/HCPCS: G0463

== ENCOUNTER 2020-10-18 10:30 | Outpatient (CLI) | payer BC ==
[2020-10-18] MEDS ORDERED: Z GUARD REMEDY 2 OZ OINT TP ONE (11:10)
== END 2020-10-18 23:59 | disposition home or self-care (01) ==
LOC: WOU 10:30
PROVIDERS: ATTEND Surgery
DX: C50.212 Malignant neoplasm of upper-inner quadrant of left female breast (principal); N64.4 Mastodynia; Z17.0 Estrogen receptor positive status [ER+]
CPT/HCPCS: G0463

== ENCOUNTER 2020-11-08 10:55 | Outpatient (CLI) | payer BC | END 2020-11-08 23:59 | disposition home or self-care (01) | LOC: WOU 10:55 | PROVIDERS: ATTEND Surgery | DX: C50.212 Malignant neoplasm of upper-inner quadrant of left female breast (principal) | CPT/HCPCS: G0463 ==

== ENCOUNTER 2020-12-06 11:00 | Outpatient (CLI) | payer BC | END 2020-12-06 23:59 | disposition home or self-care (01) | LOC: WOU 11:00 | PROVIDERS: ATTEND Surgery | DX: C50.212 Malignant neoplasm of upper-inner quadrant of left female breast (principal); Z17.0 Estrogen receptor positive status [ER+] | CPT/HCPCS: G0463 ==

== ENCOUNTER 2020-12-24 08:01 | Outpatient (CLI) | payer BC ==
[2020-12-24 09:26] LABS: ALBUMIN 3.9 g/dL (3.4-5.0); BILIRUBIN,DIRECT 0.2 mg/dL (0.0-0.2); BILIRUBIN,TOTAL 0.4 mg/dL (0.2-1.0)
== END 2020-12-24 23:59 | disposition home or self-care (01) ==
LOC: LAB 08:01
PROVIDERS: ATTEND Family Medicine
DX: D05.12 Intraductal carcinoma in situ of left breast (principal); K76.0 Fatty (change of) liver, not elsewhere classified; R94.5 Abnormal results of liver function studies
CPT/HCPCS: 36415; 80076-TC; 82977-TC; 86706; 86709-TC; 86803; 87340

== ENCOUNTER 2021-03-05 08:55 | Outpatient (CLI) | payer BC | END 2021-03-05 23:59 | disposition home or self-care (01) | LOC: WOU 08:55 | PROVIDERS: ATTEND Surgery | DX: C50.212 Malignant neoplasm of upper-inner quadrant of left female breast (principal); Z17.0 Estrogen receptor positive status [ER+]; Z79.899 Other long term (current) drug therapy | CPT/HCPCS: G0463 ==

== ENCOUNTER 2021-04-13 14:17 | Emergency (ER) | payer BC ==
[~2021-04-13] VITALS: Ht 157.5 cm; Wt 83.9 kg
--- NOTE | 2021-04-13 14:17 | NUR ---
BIB C/O RQL PAIN X1DAY 02/24 ON PS. PT IS A&OX4 AND VITALS ARE WITHIN NORMAL LIMITS. PT BREATHING IS REGULAR AND UNLABORED. PT WAS SENT TO BED 2 AND ATTCHED TO MONITOR.
[2021-04-13 15:05] LABS: BASOPHILS # (AUTO) 0.1 K/uL (0.0-0.2); BASOPHILS % (AUTO) 0.5 % (0.0-2.0); EOSINOPHILS % (AUTO) 0.6 % (0.0-6.0); HEMATOCRIT 39 % (33-45); HEMOGLOBIN 13.2 g/dL (11.5-14.8); LYMPHOCYTES # (AUTO) 1.1 K/uL (0.8-4.8); LYMPHOCYTES % (AUTO) 9.4 % (20.0-44.0); MEAN CORPUSCULAR HGB CONC 34 g/dl (31.0-36.0); MEAN CORPUSCULAR VOLUME 90 fL (82-100); MONOCYTES # (AUTO) 1.1 K/uL (0.1-1.30); MONOCYTES % (AUTO) 9.6 % (2.0-12.0); NEUTROPHILS # (AUTO) 9.3 K/uL (1.8-8.9); NEUTROPHILS % (AUTO) 79.9 % (43.0-81.0); PLATELET COUNT (AUTO) 257 K/uL (150-450); RED BLOOD CELL COUNT(AUTO) 4.38 MIL/uL (4.0-5.2); WHITE BLOOD COUNT (AUTO) 11.7 K/uL (4.3-11.0)
[2021-04-13 15:13] LABS: BILIRUBIN,URINE NEGATIVE (NEGATIVE); COLOR,URINE DARK YELLOW (YELLOW); LEUKOCYTE ESTERASE ,URINE LARGE (NEGATIVE); NITRITE, URINE POSITIVE (NEGATIVE); PROTEIN,URINE 100 mg/dl (NEGATIVE); UGLUCOSE NEGATIVE (NEGATIVE)
[2021-04-13 15:16] LABS: CALCIUM, SERUM 9.1 mg/dL (8.5-10.1); CREATININE 0.8 mg/dL (0.6-1.3); POTASSIUM 3.9 mmol/L (3.5-5.1)
[2021-04-13 15:21] LABS: ALBUMIN 3.5 g/dL (3.4-5.0); BILIRUBIN,DIRECT 0.2 mg/dL (0.0-0.2); BILIRUBIN,TOTAL 0.5 mg/dL (0.2-1.0); TOTAL PROTEIN, SERUM 8.2 g/dL (6.4-8.2)
[2021-04-13 15:24] LABS: BACTERIA,URINE Many /HPF (None Seen); RBC,URINE 21-50 /HPF (0-2); SQUAMOUS EPITHELIAL CELL,UR Moderate /HPF (None Seen); WBC,URINE TOO NUMEROUS TO COUN /HPF (0-3)
--- NOTE | 2021-04-13 15:29 | NUR ---
PT BACK FROM CT
[2021-04-13] MEDS ORDERED: CEFTRIAXONE 1 G VIAL IM ONE (16:00)
[2021-04-13] MEDS ORDERED: CEFTRIAXONE 1 G VIAL ONE (16:07)
--- NOTE | 2021-04-13 18:33 | NUR ---
CALLED CHEYANNE FOR READ.
[2021-04-13] MEDS ORDERED: NITR100C6 PO (18:44)
[2021-04-13 18:57] VITALS: BP 110/66
--- NOTE | 2021-04-13 18:58 | NUR ---
Patient discharged to home in stable condition. Written and verbal after care instructions given. Patient verbalizes understanding of instruction.
== END 2021-04-13 18:58 | disposition home or self-care (01) ==
LOC: ER 14:25
DX: N12 Tubulo-interstitial nephritis, not specified as acute or chronic (principal); Z90.49 Acquired absence of other specified parts of digestive tract; Z88.8 Allergy status to other drugs, medicaments and biological substances; Z88.1 Allergy status to other antibiotic agents; Z91.018 Allergy to other foods; Z79.899 Other long term (current) drug therapy
CPT/HCPCS: 36415; 74176; 80048; 80076; 81001; 83690; 85025; 87077; 87086; 87186; 96372; 99284; J0696

== ENCOUNTER 2021-05-03 08:54 | Outpatient (CLI) | payer BC ==
[~2021-05-03 08:54] MED LIST changes: +NITR100C6 PO
[2021-05-03 10:45] LABS: BILIRUBIN,URINE NEGATIVE (NEGATIVE); COLOR,URINE YELLOW (YELLOW); LEUKOCYTE ESTERASE ,URINE SMALL (NEGATIVE); NITRITE, URINE NEGATIVE (NEGATIVE); PH,URINE 6.5 (5.0-8.0); PROTEIN,URINE NEGATIVE (NEGATIVE); UGLUCOSE NEGATIVE (NEGATIVE); UROBILINOGEN,URINE 0.2 EU/dL (0.2)
[2021-05-03 10:55] LABS: BASOPHILS # (AUTO) 0.1 K/uL (0.0-0.2); BASOPHILS % (AUTO) 1.2 % (0.0-2.0); EOSINOPHILS % (AUTO) 10.1 % (0.0-6.0); HEMATOCRIT 39 % (33-45); HEMOGLOBIN 13.3 g/dL (11.5-14.8); LYMPHOCYTES # (AUTO) 1.3 K/uL (0.8-4.8); LYMPHOCYTES % (AUTO) 19.8 % (20.0-44.0); MEAN CORPUSCULAR HGB CONC 34 g/dl (31.0-36.0); MEAN CORPUSCULAR VOLUME 89 fL (82-100); MONOCYTES # (AUTO) 0.6 K/uL (0.1-1.30); MONOCYTES % (AUTO) 9.7 % (2.0-12.0); NEUTROPHILS # (AUTO) 3.7 K/uL (1.8-8.9); NEUTROPHILS % (AUTO) 59.2 % (43.0-81.0); PLATELET COUNT (AUTO) 274 K/uL (150-450); RED BLOOD CELL COUNT(AUTO) 4.41 MIL/uL (4.0-5.2); WHITE BLOOD COUNT (AUTO) 6.3 K/uL (4.3-11.0)
[2021-05-03 12:11] LABS: ALBUMIN 3.6 g/dL (3.4-5.0); BILIRUBIN,TOTAL 0.4 mg/dL (0.2-1.0); CALCIUM, SERUM 9.2 mg/dL (8.5-10.1); CREATININE 0.8 mg/dL (0.6-1.3); POTASSIUM 3.4 mmol/L (3.5-5.1); TOTAL PROTEIN, SERUM 8.1 g/dL (6.4-8.2)
[2021-05-03 13:02] LABS: THYROID STIMULATING HORMONE 1.331 uIU/mL (0.358-3.74); URIC ACID 5.4 mg/dL (2.6-7.2)
[2021-05-03 13:43] LABS: RBC,URINE 21-50 /HPF (0-2)
[2021-05-03 13:45] LABS: BACTERIA,URINE Few /HPF (None Seen); SQUAMOUS EPITHELIAL CELL,UR Few /HPF (None Seen)
[2021-05-04 08:06] LABS: T3, FREE 3.9 pg/mL (2.0-4.4)
== END 2021-05-03 23:59 | disposition home or self-care (01) ==
LOC: LAB 08:54
PROVIDERS: ATTEND Family Medicine
DX: I10 Essential (primary) hypertension (principal); E78.2 Mixed hyperlipidemia; E55.9 Vitamin D deficiency, unspecified; J45.909 Unspecified asthma, uncomplicated; R73.9 Hyperglycemia, unspecified; Z79.899 Other long term (current) drug therapy
CPT/HCPCS: 36415; 73130-TC; 80053-TC; 80061-TC; 81001; 82306; 82607-TC; 82728-TC; 83540-TC; 84439-TC; 84443-TC; 84481; 84550-TC; 85025-TC; 87086-TC

== ENCOUNTER 2021-06-04 08:35 | Outpatient (CLI) | payer BC | END 2021-06-04 23:59 | disposition home or self-care (01) | LOC: WOU 08:35 | PROVIDERS: ATTEND Surgery | DX: C50.212 Malignant neoplasm of upper-inner quadrant of left female breast (principal); Z17.0 Estrogen receptor positive status [ER+] | CPT/HCPCS: G0463 ==

== ENCOUNTER → 2021-08-30 | Outpatient (CLI) | payer BC ==
[~2021-08-30] MED LIST changes: +HYDR-3976 PO; +ONDA4TAB5 PO; +ONDANSETRON HCL/PF 4 MG/2 ML VIAL ONE
[2021-08-30 12:27] LABS: BASOPHILS # (AUTO) 0.1 K/uL (0.0-0.2); BASOPHILS % (AUTO) 0.6 % (0.0-2.0); EOSINOPHILS % (AUTO) 0.5 % (0.0-6.0); HEMATOCRIT 38 % (33-45); HEMOGLOBIN 12.5 g/dL (11.5-14.8); LYMPHOCYTES # (AUTO) 1.2 K/uL (0.8-4.8); LYMPHOCYTES % (AUTO) 5.2 % (20.0-44.0); MEAN CORPUSCULAR HGB CONC 33 g/dl (31.0-36.0); MEAN CORPUSCULAR VOLUME 87 fL (82-100); MONOCYTES % (AUTO) 8.7 % (2.0-12.0); NEUTROPHILS # (AUTO) 20.1 K/uL (1.8-8.9); PLATELET COUNT (AUTO) 313 K/uL (150-450); RED BLOOD CELL COUNT(AUTO) 4.38 MIL/uL (4.0-5.2); WHITE BLOOD COUNT (AUTO) 23.6 K/uL (4.3-11.0)
[2021-08-30 12:42] LABS: BILIRUBIN,URINE NEGATIVE (NEGATIVE); COLOR,URINE YELLOW (YELLOW); LEUKOCYTE ESTERASE ,URINE MODERATE (NEGATIVE); NITRITE, URINE NEGATIVE (NEGATIVE); PROTEIN,URINE NEGATIVE (NEGATIVE); UGLUCOSE NEGATIVE (NEGATIVE); UROBILINOGEN,URINE 0.2 EU/dL (0.2)
[2021-08-30 12:48] LABS: RBC,URINE 0-2 /HPF (0-2); WBC,URINE 21-50 /HPF (0-3)
[2021-08-30 12:49] LABS: BACTERIA,URINE Few /HPF (None Seen)
== END | disposition home or self-care (01) ==
LOC: LAB 11:06
PROVIDERS: ATTEND Family Medicine
DX: R50.9 Fever, unspecified (principal)
CPT/HCPCS: 36415; 81001; 85025-TC; 87086-TC

== ENCOUNTER 2021-08-31 21:24 | Emergency (ER) | payer BC, OTHER ==
[~2021-08-31] VITALS: Ht 154.9 cm; Wt 81.6 kg
[~2021-08-31 21:24] MED LIST changes: -HYDR-3976 PO; -ONDA4TAB5 PO; -ONDANSETRON HCL/PF 4 MG/2 ML VIAL ONE
[2021-08-31] MEDS ORDERED: KETOROLAC TROMETHAMINE 15 MG/ML VIAL ONE (21:43)
[2021-08-31] MEDS ORDERED: IV NS 0.9% 1,000 ML BAG IV ONE (22:00)
[2021-08-31] MEDS ORDERED: KETOROLAC TROMETHAMINE INJ 30 MG/ML VIAL IV ONE (22:00)
--- NOTE | 2021-08-31 22:05 | NUR ---
PATIENT BIBHUSBAND C/O RIGHT KIDNEY PAIN X 2 DAYS. PATIENT IS A/O X 4 RR EVEN AND UNLABORED, NO SOB NOTED. PATIENT CONNECTED TO CARDAIC MONITOR AND POX. PATIENT TAKEN TO ER BED 08
--- NOTE | 2021-08-31 22:06 | NUR ---
BLOOD COLLECTED SENT TO LAB
--- NOTE | 2021-08-31 22:09 | NUR ---
URINE COLLECTED SENT TO LAB
[2021-08-31 22:19] LABS: BASOPHILS # (AUTO) 0.1 K/uL (0.0-0.2); BASOPHILS % (AUTO) 0.5 % (0.0-2.0); EOSINOPHILS % (AUTO) 1.3 % (0.0-6.0); HEMATOCRIT 36 % (33-45); HEMOGLOBIN 11.9 g/dL (11.5-14.8); LYMPHOCYTES # (AUTO) 1.1 K/uL (0.8-4.8); MEAN CORPUSCULAR HGB CONC 33 g/dl (31.0-36.0); MEAN CORPUSCULAR VOLUME 87 fL (82-100); MONOCYTES # (AUTO) 1.5 K/uL (0.1-1.30); MONOCYTES % (AUTO) 12.1 % (2.0-12.0); NEUTROPHILS # (AUTO) 9.4 K/uL (1.8-8.9); NEUTROPHILS % (AUTO) 77.1 % (43.0-81.0); PLATELET COUNT (AUTO) 251 K/uL (150-450); WHITE BLOOD COUNT (AUTO) 12.1 K/uL (4.3-11.0)
[2021-08-31] MEDS ORDERED: MORPHINE SULFATE INJ 2 MG/ML DISP.SYRIN IV ONE (22:30)
[2021-08-31 22:32] LABS: BILIRUBIN,URINE NEGATIVE (NEGATIVE); COLOR,URINE YELLOW (YELLOW); LEUKOCYTE ESTERASE ,URINE NEGATIVE (NEGATIVE); NITRITE, URINE NEGATIVE (NEGATIVE); PH,URINE 7.5 (5.0-8.0); PROTEIN,URINE TRACE mg/dl (NEGATIVE); UGLUCOSE NEGATIVE (NEGATIVE)
[2021-08-31] MEDS ORDERED: MORPHINE SULFATE INJ 4 MG/ML DISP.SYRIN ONE (22:32)
[2021-08-31] MEDS ORDERED: ONDANSETRON HCL/PF 4 MG/2 ML VIAL ONE (22:40)
[2021-08-31 22:41] LABS: BILIRUBIN,DIRECT 0.2 mg/dL (0.0-0.2); BILIRUBIN,TOTAL 0.5 mg/dL (0.2-1.0); CALCIUM, SERUM 8.9 mg/dL (8.5-10.1); CREATININE 1.4 mg/dL (0.6-1.3); POTASSIUM 4.1 mmol/L (3.5-5.1); TOTAL PROTEIN, SERUM 8.1 g/dL (6.4-8.2)
--- NOTE | 2021-08-31 22:50 | NUR ---
PATIENT TAKEN TO CT
[2021-08-31] MEDS ORDERED: ONDANSETRON HCL/PF 4 MG/2 ML VIAL IVP ONE (23:00)
[2021-08-31] MEDS ORDERED: HYDR-3976 PO (23:56)
[2021-08-31] MEDS ORDERED: ONDA4TAB5 PO (23:56)
--- NOTE | 2021-09-01 00:05 | NUR ---
Patient discharged to home in stable condition. Written and verbal after care instructions given. Patient verbalizes understanding of instruction.
--- NOTE | 2021-09-01 00:05 | NUR ---
IV removed. Catheter intact and site benign. Pressure and 4x4 applied to site. No bleeding noted.
[2021-09-01 00:06] VITALS: BP 146/89
== END 2021-09-01 00:07 | disposition home or self-care (01) ==
LOC: ER 21:30
DX: N20.0 Calculus of kidney (principal); R11.10 Vomiting, unspecified; Z90.49 Acquired absence of other specified parts of digestive tract; Z88.1 Allergy status to other antibiotic agents; Z91.018 Allergy to other foods; Z88.8 Allergy status to other drugs, medicaments and biological substances; Z79.899 Other long term (current) drug therapy
CPT/HCPCS: 36415; 74176; 80048; 80076; 81003; 83690; 85025; 96361; 96374; 96375; 99284; J1885; J2270; J2405; J7030

== ENCOUNTER 2021-09-03 08:25 | Outpatient (CLI) | payer BC ==
[~2021-09-03 08:25] MED LIST changes: +HYDR-3976 PO; +ONDA4TAB5 PO
== END 2021-09-03 23:59 | disposition home or self-care (01) ==
LOC: WOU 08:25
PROVIDERS: ATTEND Surgery
DX: C50.212 Malignant neoplasm of upper-inner quadrant of left female breast (principal); Z17.0 Estrogen receptor positive status [ER+]; L59.8 Other specified disorders of the skin and subcutaneous tissue related to radiation; Z79.811 Long term (current) use of aromatase inhibitors; Z79.899 Other long term (current) drug therapy
CPT/HCPCS: G0463

== ENCOUNTER 2021-09-05 15:14 | Emergency (ER) | payer BC, OTHER ==
[~2021-09-05] VITALS: Ht 157.5 cm; Wt 83.0 kg
[2021-09-05] MEDS ORDERED: KETOROLAC TROMETHAMINE INJ 30 MG/ML VIAL IV ONE ×2 (15:30→17:30)
[2021-09-05] MEDS ORDERED: ONDANSETRON HCL/PF 4 MG/2 ML VIAL IVP ONE (15:30)
[2021-09-05] MEDS ORDERED: HYDROMORPHONE INJ 2 MG/ML DISP.SYRIN IV ONE (15:30)
[2021-09-05 15:37] LABS: BASOPHILS # (AUTO) 0.1 K/uL (0.0-0.2); BASOPHILS % (AUTO) 1.2 % (0.0-2.0); EOSINOPHILS % (AUTO) 5.6 % (0.0-6.0); HEMATOCRIT 36 % (33-45); LYMPHOCYTES % (AUTO) 8.1 % (20.0-44.0); MEAN CORPUSCULAR HGB CONC 34 g/dl (31.0-36.0); MEAN CORPUSCULAR VOLUME 86 fL (82-100); MONOCYTES # (AUTO) 1.1 K/uL (0.1-1.30); MONOCYTES % (AUTO) 8.8 % (2.0-12.0); NEUTROPHILS # (AUTO) 9.1 K/uL (1.8-8.9); NEUTROPHILS % (AUTO) 76.3 % (43.0-81.0); PLATELET COUNT (AUTO) 435 K/uL (150-450); RED BLOOD CELL COUNT(AUTO) 4.19 MIL/uL (4.0-5.2)
[2021-09-05] MEDS ORDERED: ONDANSETRON HCL/PF 4 MG/2 ML VIAL ONE (15:40)
[2021-09-05] MEDS ORDERED: KETOROLAC TROMETHAMINE 15 MG/ML VIAL ONE (15:40)
[2021-09-05] MEDS ORDERED: HYDROMORPHONE 1 MG/1 ML DISP.SYRIN ONE (15:41)
--- NOTE | 2021-09-05 16:13 | NUR ---
TO ER BED 3, BIBHUSBAND SENT BY PMD C/O FLANK PAIN X1WEEK P/S 02/24, AAOX3, BREATHING EVEN AND NON LABORED, CONNECTED TO MONITOR, AWAITING MD ORDERS
[2021-09-05 16:20] LABS: BILIRUBIN,DIRECT 0.2 mg/dL (0.0-0.2); BILIRUBIN,TOTAL 0.4 mg/dL (0.2-1.0); CALCIUM, SERUM 9.4 mg/dL (8.5-10.1); CREATININE 1.2 mg/dL (0.6-1.3); POTASSIUM 3.7 mmol/L (3.5-5.1); TOTAL PROTEIN, SERUM 8.8 g/dL (6.4-8.2)
[2021-09-05 16:29] LABS: BILIRUBIN,URINE NEGATIVE (NEGATIVE); COLOR,URINE YELLOW (YELLOW); LEUKOCYTE ESTERASE ,URINE MODERATE (NEGATIVE); NITRITE, URINE NEGATIVE (NEGATIVE); PROTEIN,URINE NEGATIVE (NEGATIVE); UGLUCOSE NEGATIVE (NEGATIVE); UROBILINOGEN,URINE 0.2 EU/dL (0.2)
[2021-09-05 16:34] LABS: WBC,URINE 21-50 /HPF (0-3)
[2021-09-05 16:35] LABS: BACTERIA,URINE 1+ /HPF (None Seen); MUCUS,URINE Few /LPF (None Seen); SQUAMOUS EPITHELIAL CELL,UR 0-2 /HPF (None Seen)
--- NOTE | 2021-09-05 16:48 | NUR ---
vomiting-Dr Contreras aware medicated w/zofran 8mg SIVP as ordered
[2021-09-05] MEDS ORDERED: CEFTRIAXONE 1GM BAG (ER ONLY) 50 ML IV ONE (16:55)
[2021-09-05] MEDS ORDERED: ONDANSETRON HCL/PF - ER 4 MG/2 ML VIAL IV ONE (17:00)
[2021-09-05] MEDS ORDERED: CEFTRIAXONE 1GM BAG (ER ONLY) 1 GM/50 ML PIGGYBACK IV ONE (17:00)
--- NOTE | 2021-09-05 17:03 | NUR ---
CALLED DR. MILES [phone] PATTON.
--- NOTE | 2021-09-05 17:05 | NUR ---
COVID SWAB DONE AND SENT TO LAB
[2021-09-05] MEDS ORDERED: KETOROLAC TROMETHAMINE INJ 30 MG/ML VIAL ONE (17:09)
--- NOTE | 2021-09-05 19:00 | NUR ---
IV removed. Catheter intact and site benign. Pressure and 4x4 applied to site. No bleeding noted.Patient discharged to home in stable condition.
--- NOTE | 2021-09-05 19:00 | NUR ---
Patient does not wish to proceed with medical care recommended by Dr. Contreras. Patient given information related to possible complications, up to and including , which could occur as a result of leaving the hospital at this time. Patient verbalizes understanding of risks involved due to leaving against medical advice. Patient has signed AMA form.
[2021-09-05 19:01] VITALS: BP 130/88
== END 2021-09-05 19:02 | disposition left against medical advice (07) ==
LOC: ER 15:15
DX: N13.6 Pyonephrosis (principal); Z85.3 Personal history of malignant neoplasm of breast; Z92.21 Personal history of antineoplastic chemotherapy; K57.90 Diverticulosis of intestine, part unspecified, without perforation or abscess without bleeding; Z20.822 Contact with and (suspected) exposure to COVID-19; Z53.29 Procedure and treatment not carried out because of patient's decision for other reasons; R73.9 Hyperglycemia, unspecified; R31.9 Hematuria, unspecified; Z91.018 Allergy to other foods; Z88.8 Allergy status to other drugs, medicaments and biological substances; Z90.49 Acquired absence of other specified parts of digestive tract; R03.0 Elevated blood-pressure reading, without diagnosis of hypertension
CPT/HCPCS: 36415; 74176; 80048; 80076; 81001; 85025; 87086; 87426; 96365; 96375; 96376; 99285; C9803; J0696; J1170; J1885 ×2; J2405 ×3

== ENCOUNTER 2021-10-31 08:34 | Outpatient (CLI) | payer BC, OTHER ==
[2021-10-31 10:30] LABS: BASOPHILS # (AUTO) 0.1 K/uL (0.0-0.2); BASOPHILS % (AUTO) 0.9 % (0.0-2.0); EOSINOPHILS % (AUTO) 12.9 % (0.0-6.0); HEMATOCRIT 40 % (33-45); HEMOGLOBIN 13.2 g/dL (11.5-14.8); LYMPHOCYTES # (AUTO) 1.2 K/uL (0.8-4.8); LYMPHOCYTES % (AUTO) 18.8 % (20.0-44.0); MEAN CORPUSCULAR HGB CONC 33 g/dl (31.0-36.0); MEAN CORPUSCULAR VOLUME 84 fL (82-100); MONOCYTES # (AUTO) 0.5 K/uL (0.1-1.30); MONOCYTES % (AUTO) 8.3 % (2.0-12.0); NEUTROPHILS # (AUTO) 3.7 K/uL (1.8-8.9); NEUTROPHILS % (AUTO) 59.1 % (43.0-81.0); PLATELET COUNT (AUTO) 297 K/uL (150-450); RED BLOOD CELL COUNT(AUTO) 4.72 MIL/uL (4.0-5.2); WHITE BLOOD COUNT (AUTO) 6.2 K/uL (4.3-11.0)
[2021-10-31 10:39] LABS: BILIRUBIN,URINE NEGATIVE (NEGATIVE); COLOR,URINE YELLOW (YELLOW); LEUKOCYTE ESTERASE ,URINE SMALL (NEGATIVE); NITRITE, URINE NEGATIVE (NEGATIVE); PH,URINE 6.5 (5.0-8.0); PROTEIN,URINE NEGATIVE (NEGATIVE); UGLUCOSE NEGATIVE (NEGATIVE); UROBILINOGEN,URINE 0.2 EU/dL (0.2)
[2021-10-31 10:46] LABS: ALBUMIN 3.9 g/dL (3.4-5.0); BILIRUBIN,TOTAL 0.4 mg/dL (0.2-1.0); CALCIUM, SERUM 9.7 mg/dL (8.5-10.1); CREATININE 0.8 mg/dL (0.6-1.3); POTASSIUM 3.7 mmol/L (3.5-5.1); TOTAL PROTEIN, SERUM 8.7 g/dL (6.4-8.2)
[2021-10-31 10:57] LABS: THYROID STIMULATING HORMONE 0.92 uIU/mL (0.358-3.74)
[2021-10-31 11:03] LABS: BACTERIA,URINE Many /HPF (None Seen); SQUAMOUS EPITHELIAL CELL,UR Moderate /HPF (None Seen)
[2021-11-01 06:07] LABS: T3, FREE 3.9 pg/mL (2.0-4.4)
[2021-11-01 07:07] LABS: THYROID PEROXIDASE (TPO) AB 8 IU/mL (0-34)
== END 2021-10-31 23:59 | disposition home or self-care (01) ==
LOC: LAB 08:34
PROVIDERS: ATTEND Family Medicine
DX: Z01.818 Encounter for other preprocedural examination (principal); E04.1 Nontoxic single thyroid nodule
CPT/HCPCS: 36415; 71046; 80053-TC; 81001; 84439-TC; 84443-TC; 84481; 85025-TC; 86376; 86800; 87086-TC

== ENCOUNTER 2021-11-22 08:12 | Outpatient (CLI) | payer BC, OTHER ==
[2021-11-22 09:33] LABS: ALBUMIN 3.6 g/dL (3.4-5.0); BILIRUBIN,TOTAL 0.5 mg/dL (0.2-1.0); CALCIUM, SERUM 9.3 mg/dL (8.5-10.1); POTASSIUM 3.8 mmol/L (3.5-5.1); TOTAL PROTEIN, SERUM 8.9 g/dL (6.4-8.2)
[2021-11-22 09:38] LABS: BASOPHILS % (AUTO) 0.5 % (0.0-2.0); HEMATOCRIT 39 % (33-45); HEMOGLOBIN 12.9 g/dL (11.5-14.8); LYMPHOCYTES # (AUTO) 1.1 K/uL (0.8-4.8); LYMPHOCYTES % (AUTO) 14.4 % (20.0-44.0); MEAN CORPUSCULAR HGB CONC 34 g/dl (31.0-36.0); MEAN CORPUSCULAR VOLUME 85 fL (82-100); MONOCYTES # (AUTO) 0.8 K/uL (0.1-1.30); MONOCYTES % (AUTO) 9.7 % (2.0-12.0); NEUTROPHILS # (AUTO) 5.3 K/uL (1.8-8.9); NEUTROPHILS % (AUTO) 67.4 % (43.0-81.0); PLATELET COUNT (AUTO) 328 K/uL (150-450); RED BLOOD CELL COUNT(AUTO) 4.53 MIL/uL (4.0-5.2); WHITE BLOOD COUNT (AUTO) 7.9 K/uL (4.3-11.0)
== END 2021-11-22 23:59 | disposition home or self-care (01) ==
LOC: LAB 08:12
PROVIDERS: ATTEND Family Medicine
DX: R68.83 Chills (without fever) (principal)
CPT/HCPCS: 36415; 80053-TC; 85025-TC

== ENCOUNTER 2022-02-04 08:00 | Outpatient (CLI) | payer BC | END 2022-02-04 23:59 | disposition home or self-care (01) | LOC: WOU 08:00 | PROVIDERS: ATTEND Surgery | DX: Z08 Encounter for follow-up examination after completed treatment for malignant neoplasm (principal); Z85.3 Personal history of malignant neoplasm of breast | CPT/HCPCS: G0463 ==

== ENCOUNTER 2022-02-04 08:59 | Outpatient (CLI) | payer BC ==
[2022-02-04 10:31] LABS: BASOPHILS # (AUTO) 0.1 K/uL (0.0-0.2); BASOPHILS % (AUTO) 0.6 % (0.0-2.0); EOSINOPHILS % (AUTO) 5.9 % (0.0-6.0); HEMATOCRIT 37 % (33-45); HEMOGLOBIN 12.1 g/dL (11.5-14.8); LYMPHOCYTES # (AUTO) 1.1 K/uL (0.8-4.8); LYMPHOCYTES % (AUTO) 9.5 % (20.0-44.0); MEAN CORPUSCULAR HGB CONC 33 g/dl (31.0-36.0); MEAN CORPUSCULAR VOLUME 85 fL (82-100); MONOCYTES # (AUTO) 0.8 K/uL (0.1-1.30); MONOCYTES % (AUTO) 7.4 % (2.0-12.0); NEUTROPHILS # (AUTO) 8.8 K/uL (1.8-8.9); NEUTROPHILS % (AUTO) 76.6 % (43.0-81.0); PLATELET COUNT (AUTO) 473 K/uL (150-450); RED BLOOD CELL COUNT(AUTO) 4.29 MIL/uL (4.0-5.2); WHITE BLOOD COUNT (AUTO) 11.4 K/uL (4.3-11.0)
[2022-02-04 11:04] LABS: ALBUMIN 3.4 g/dL (3.4-5.0); BILIRUBIN,TOTAL 0.5 mg/dL (0.2-1.0); POTASSIUM 4.1 mmol/L (3.5-5.1); TOTAL PROTEIN, SERUM 9.9 g/dL (6.4-8.2)
== END 2022-02-04 23:59 | disposition home or self-care (01) ==
LOC: RAD 08:59
PROVIDERS: ATTEND Family Medicine
DX: Z01.818 Encounter for other preprocedural examination (principal)
CPT/HCPCS: 36415; 71046; 80053-TC; 85025-TC; 87086-TC

== ENCOUNTER 2022-10-17 08:42 | Outpatient (CLI) | payer BC ==
[2022-10-17 10:44] LABS: BASOPHILS % (AUTO) 0.3 % (0.0-2.0); EOSINOPHILS % (AUTO) 8.4 % (0.0-6.0); HEMATOCRIT 41 % (33-45); HEMOGLOBIN 13.6 g/dL (11.5-14.8); LYMPHOCYTES # (AUTO) 1.2 K/uL (0.8-4.8); LYMPHOCYTES % (AUTO) 17.7 % (20.0-44.0); MEAN CORPUSCULAR HGB CONC 33 g/dl (31.0-36.0); MEAN CORPUSCULAR VOLUME 88 fL (82-100); MONOCYTES # (AUTO) 0.6 K/uL (0.1-1.30); MONOCYTES % (AUTO) 8.1 % (2.0-12.0); NEUTROPHILS # (AUTO) 4.5 K/uL (1.8-8.9); NEUTROPHILS % (AUTO) 65.5 % (43.0-81.0); PLATELET COUNT (AUTO) 252 K/uL (150-450); RED BLOOD CELL COUNT(AUTO) 4.67 MIL/uL (4.0-5.2); WHITE BLOOD COUNT (AUTO) 6.9 K/uL (4.3-11.0)
[2022-10-17 11:02] LABS: BILIRUBIN,URINE NEGATIVE (NEGATIVE); COLOR,URINE YELLOW (YELLOW); LEUKOCYTE ESTERASE ,URINE 3+ (NEGATIVE); NITRITE, URINE POSITIVE (NEGATIVE); PH,URINE 6.5 (5.0-8.0); PROTEIN,URINE NEGATIVE (NEGATIVE); UGLUCOSE NEGATIVE (NEGATIVE); UROBILINOGEN,URINE 0.2 EU/dL (0.2)
[2022-10-17 11:03] LABS: BACTERIA,URINE Few /HPF (None Seen); RBC,URINE 0-2 /HPF (0-2); SQUAMOUS EPITHELIAL CELL,UR Rare /HPF (None Seen)
[2022-10-17 11:06] LABS: ALBUMIN 3.6 g/dL (3.4-5.0); BILIRUBIN,TOTAL 0.4 mg/dL (0.2-1.0); CALCIUM, SERUM 9.1 mg/dL (8.5-10.1); CREATININE 0.7 mg/dL (0.6-1.3); POTASSIUM 4.2 mmol/L (3.5-5.1)
[2022-10-17 11:24] LABS: THYROID STIMULATING HORMONE 0.854 uIU/mL (0.358-3.74)
== END 2022-10-17 23:59 | disposition home or self-care (01) ==
LOC: LAB 08:42
PROVIDERS: ATTEND Family Medicine
DX: Z00.01 Encounter for general adult medical examination with abnormal findings (principal); R79.9 Abnormal finding of blood chemistry, unspecified
CPT/HCPCS: 36415; 80053-TC; 80061-TC; 81001; 82306; 82728-TC; 83540-TC; 84439-TC; 84443-TC; 84481; 85025-TC; 87086-TC

== ENCOUNTER 2022-10-21 08:09 | Outpatient (CLI) | payer BC | END 2022-10-21 23:59 | disposition home or self-care (01) | LOC: WOU 08:09 | PROVIDERS: ATTEND Surgery | DX: Z08 Encounter for follow-up examination after completed treatment for malignant neoplasm (principal); Z85.3 Personal history of malignant neoplasm of breast | CPT/HCPCS: G0463 ==

== ENCOUNTER 2022-11-27 12:42 | Inpatient (IN) | payer BC ==
[~2022-11-27] VITALS: Ht 157.5 cm; Wt 82.1 kg
[2022-11-27] MEDS ORDERED: IV NS 0.9% 1,000 ML IV ONE (14:00)
[2022-11-27 14:35] LABS: BASOPHILS % (AUTO) 0.1 % (0.0-2.0); EOSINOPHILS % (AUTO) 0.1 % (0.0-6.0); HEMATOCRIT 41 % (33-45); HEMOGLOBIN 13.4 g/dL (11.5-14.8); LYMPHOCYTES # (AUTO) 0.9 K/uL (0.8-4.8); LYMPHOCYTES % (AUTO) 4.8 % (20.0-44.0); MEAN CORPUSCULAR HGB CONC 33 g/dl (31.0-36.0); MEAN CORPUSCULAR VOLUME 89 fL (82-100); MONOCYTES # (AUTO) 0.9 K/uL (0.1-1.30); MONOCYTES % (AUTO) 4.7 % (2.0-12.0); NEUTROPHILS # (AUTO) 17.2 K/uL (1.8-8.9); NEUTROPHILS % (AUTO) 90.3 % (43.0-81.0); PLATELET COUNT (AUTO) 194 K/uL (150-450); RED BLOOD CELL COUNT(AUTO) 4.65 MIL/uL (4.0-5.2)
[2022-11-27 14:40] LABS: CALCIUM, SERUM 9.8 mg/dL (8.5-10.1); CARBON DIOXIDE 23 mmol/L (21-32); CHLORIDE 101 mmol/L (98-107); CREATININE 1.3 mg/dL (0.6-1.3); GLUCOSE 169 mg/dL (74-106); POTASSIUM 3.8 mmol/L (3.5-5.1); SODIUM SERUM 137 mmol/L (136-145); UREA NITROGEN, BLOOD 18 mg/dL (7-18)
[2022-11-27 15:00] LABS: ALBUMIN 3.4 g/dL (3.4-5.0); BILIRUBIN,DIRECT 0.5 mg/dL (0.0-0.2); BILIRUBIN,TOTAL 1.1 mg/dL (0.2-1.0); TOTAL PROTEIN, SERUM 8.1 g/dL (6.4-8.2)
[2022-11-27] MEDS ORDERED: CEFTRIAXONE 1GM BAG (ER ONLY) 1 GM/50 ML PIGGYBACK IV ONE (16:00)
[2022-11-27] MEDS ORDERED: IV NS 0.9% 1,000 ML BAG IV ONE (16:00)
[2022-11-27] MEDS ORDERED: DIAZEPAM 5 MG/ML 2 ML DISP.SYRIN IV ONE (16:30)
[2022-11-27] MEDS ORDERED: MORPHINE SULFATE INJ 2 MG/ML DISP.SYRIN IV ONE (16:30)
[2022-11-27] MEDS ORDERED: KETOROLAC TROMETHAMINE INJ 30 MG/ML VIAL IV ONE (16:30)
[2022-11-27 16:34] LABS: BILIRUBIN,URINE 1+ (NEGATIVE); COLOR,URINE YELLOW (YELLOW); LEUKOCYTE ESTERASE ,URINE 2+ (NEGATIVE); NITRITE, URINE POSITIVE (NEGATIVE); PROTEIN,URINE 2+ mg/dl (NEGATIVE); UGLUCOSE NEGATIVE (NEGATIVE)
[2022-11-27 16:46] LABS: BACTERIA,URINE 3+ /HPF (None Seen); RBC,URINE 21-50 /HPF (0-2); WBC,URINE 21-50 /HPF (0-3)
[2022-11-27] MEDS ORDERED: ZOLPIDEM TARTRATE 5 MG TABLET PO PRN (17:30)
[2022-11-27] MEDS ORDERED: MORPHINE SULFATE INJ 2 MG/ML DISP.SYRIN IV PRN (17:30)
[2022-11-27] MEDS ORDERED: Z GUARD REMEDY 4 OZ OINT TP PRN (17:30)
[2022-11-27] MEDS ORDERED: MAGNESIUM HYDROXIDE 30 ML UDC PO PRN (17:30)
[2022-11-27] MEDS ORDERED: ACETAMINOPHEN 325 MG TABLET PO PRN (17:30)
[2022-11-27] MEDS ORDERED: ONDANSETRON HCL/PF 4 MG/2 ML VIAL IVP PRN (17:30)
[2022-11-27] MEDS ORDERED: MAG HYDROX/AL HYDROX/SIMETH 30 ML UDC PO PRN (17:30)
[2022-11-27] MEDS ORDERED: MORPHINE SULFATE INJ 2 MG/ML DISP.SYRIN ONE (18:13)
[2022-11-27] MEDS ORDERED: KETOROLAC TROMETHAMINE 15 MG/ML VIAL ONE (18:13)
[2022-11-27] MEDS ORDERED: DIAZEPAM 5 MG/ML 2 ML DISP.SYRIN ONE (18:14)
[2022-11-27] MEDS ORDERED: CEFTRIAXONE 1 G in IV D5W 50 ML IV ONE (18:30)
[2022-11-27] MEDS ORDERED: CEFEPIME 1 GM in IV D5W 50 ML IV ONE (18:30)
[2022-11-27] MEDS: IV NS 0.9% 1,000 ML IV PRN (18:35)
[2022-11-27] MEDS ORDERED: ANESTHESIA TRAY IN PYXIS 1 EA TRAY MC ONE (18:40)
[2022-11-27 20:00] VITALS: BP 91/48; TEMP 98; O2SAT 95
[2022-11-27] MEDS ORDERED: FENTANYL PF 100MCG/2ML AMPUL ONE (20:26)
[2022-11-27] MEDS ORDERED: FAMOTIDINE/PF INJ 20 MG/2 ML VIAL IV ONE (20:26)
[2022-11-27] MEDS ORDERED: GENTAMICIN 80 MG/2 ML VIAL ONE (20:46)
[2022-11-27] MEDS: GENTAMICIN 80 MG in IV D5W 50 ML IV SCH (22:00)
[2022-11-27 22:25] VITALS: BP 124/64; TEMP 98; O2SAT 96
[2022-11-27 22:45] VITALS: BP 103/71; TEMP 98; O2SAT 94
[2022-11-27 23:00] VITALS: BP 149/72; TEMP 98.1; O2SAT 95
[2022-11-27 23:30] VITALS: BP 112/69; TEMP 98.1; O2SAT 97
[2022-11-28] VITALS: BP 115/67; TEMP 98.1; O2SAT 98
[2022-11-28 00:45] VITALS: BP 100/65; TEMP 97.5; O2SAT 98
[2022-11-28 06:13] LABS: BASOPHILS % (AUTO) 0.2 % (0.0-2.0); HEMATOCRIT 37 % (33-45); LYMPHOCYTES # (AUTO) 0.7 K/uL (0.8-4.8); LYMPHOCYTES % (AUTO) 3.1 % (20.0-44.0); MEAN CORPUSCULAR HGB CONC 33 g/dl (31.0-36.0); MEAN CORPUSCULAR VOLUME 88 fL (82-100); MONOCYTES # (AUTO) 0.8 K/uL (0.1-1.30); MONOCYTES % (AUTO) 3.5 % (2.0-12.0); NEUTROPHILS # (AUTO) 20.7 K/uL (1.8-8.9); NEUTROPHILS % (AUTO) 93.2 % (43.0-81.0); PLATELET COUNT (AUTO) 176 K/uL (150-450); RED BLOOD CELL COUNT(AUTO) 4.15 MIL/uL (4.0-5.2); WHITE BLOOD COUNT (AUTO) 22.2 K/uL (4.3-11.0)
[2022-11-28 06:27] LABS: CALCIUM, SERUM 8.6 mg/dL (8.5-10.1); MAGNESIUM 2.1 mg/dL (1.8-2.4); PHOSPHORUS 2.1 mg/dL (2.5-4.9); POTASSIUM 3.8 mmol/L (3.5-5.1)
[2022-11-28 07:00] VITALS: BP 146/69; TEMP 98.3; O2SAT 96
[2022-11-28] MEDS: PANTOPRAZOLE 40 MG TABLET.DR PO SCH (08:21)
[2022-11-28] MEDS: MONTELUKAST SODIUM (10MG) 10 MG TABLET PO SCH (08:22)
[2022-11-28] MEDS: GENTAMICIN 80 MG in IV D5W 50 ML IV SCH (08:46)
[2022-11-28] MEDS ORDERED: ANAS1TAB50 PO (10:23)
[2022-11-28] MEDS ORDERED: IBUP-1953 PO (10:23)
[2022-11-28] MEDS: IV NS 0.9% 1,000 ML IV PRN (13:43)
[2022-11-28] MEDS ORDERED: K PHOS NEUTRAL 250 MG TABLET PO ONE (15:30)
[2022-11-28 20:00] VITALS: BP 120/69; TEMP 97.9; O2SAT 96
[2022-11-28] MEDS: CEFTRIAXONE 1 G in IV D5W 50 ML IV SCH (20:09)
[2022-11-28] MEDS: GENTAMICIN 120 MG in IV D5W 100 ML IV SCH (21:12)
[2022-11-29] MEDS: IV NS 0.9% 1,000 ML IV PRN (04:03)
[2022-11-29 06:08] LABS: EOSINOPHILS % (AUTO) 0.3 % (0.0-6.0); HEMATOCRIT 34 % (33-45); HEMOGLOBIN 11.3 g/dL (11.5-14.8); LYMPHOCYTES # (AUTO) 1.2 K/uL (0.8-4.8); LYMPHOCYTES % (AUTO) 8.1 % (20.0-44.0); MEAN CORPUSCULAR HGB CONC 33 g/dl (31.0-36.0); MEAN CORPUSCULAR VOLUME 88 fL (82-100); MONOCYTES # (AUTO) 1.1 K/uL (0.1-1.30); MONOCYTES % (AUTO) 7.2 % (2.0-12.0); NEUTROPHILS # (AUTO) 12.9 K/uL (1.8-8.9); NEUTROPHILS % (AUTO) 84.4 % (43.0-81.0); PLATELET COUNT (AUTO) 215 K/uL (150-450); RED BLOOD CELL COUNT(AUTO) 3.91 MIL/uL (4.0-5.2); WHITE BLOOD COUNT (AUTO) 15.3 K/uL (4.3-11.0)
[2022-11-29 06:17] LABS: CALCIUM, SERUM 8.6 mg/dL (8.5-10.1); CREATININE 0.8 mg/dL (0.6-1.3); POTASSIUM 3.8 mmol/L (3.5-5.1)
[2022-11-29 06:18] LABS: MAGNESIUM 2.1 mg/dL (1.8-2.4)
[2022-11-29] MEDS: PANTOPRAZOLE 40 MG TABLET.DR PO SCH (08:01)
[2022-11-29] MEDS: MONTELUKAST SODIUM (10MG) 10 MG TABLET PO SCH (08:01)
[2022-11-29] MEDS: GENTAMICIN 120 MG in IV D5W 100 ML IV SCH ×2 (08:25→20:48)
[2022-11-29 16:00] VITALS: BP 113/78; TEMP 99.2; O2SAT 99
[2022-11-29] MEDS ORDERED: K PHOS NEUTRAL 250 MG TABLET PO ONE (16:00)
[2022-11-29 19:00] VITALS: BP 108/65; TEMP 99.5; O2SAT 96
[2022-11-29] MEDS: CEFTRIAXONE 1 G in IV D5W 50 ML IV SCH (19:35)
[2022-11-29] MEDS: TRAMADOL HCL 50 MG TABLET PO PRN (20:46)
[2022-11-30] MEDS: IV NS 0.9% 1,000 ML IV PRN ×2 (03:44→17:38)
[2022-11-30] MEDS: TRAMADOL HCL 50 MG TABLET PO PRN ×3 (04:10→21:31)
[2022-11-30 06:55] LABS: BASOPHILS % (AUTO) 0.4 % (0.0-2.0); EOSINOPHILS % (AUTO) 2.4 % (0.0-6.0); HEMATOCRIT 36 % (33-45); HEMOGLOBIN 11.6 g/dL (11.5-14.8); LYMPHOCYTES % (AUTO) 12.2 % (20.0-44.0); MEAN CORPUSCULAR HGB CONC 33 g/dl (31.0-36.0); MEAN CORPUSCULAR VOLUME 88 fL (82-100); MONOCYTES % (AUTO) 12.3 % (2.0-12.0); NEUTROPHILS # (AUTO) 5.8 K/uL (1.8-8.9); NEUTROPHILS % (AUTO) 72.7 % (43.0-81.0); PLATELET COUNT (AUTO) 214 K/uL (150-450); RED BLOOD CELL COUNT(AUTO) 4.07 MIL/uL (4.0-5.2)
[2022-11-30 07:00] VITALS: BP 111/72; TEMP 98.3; O2SAT 96
[2022-11-30 07:27] LABS: CALCIUM, SERUM 8.5 mg/dL (8.5-10.1); CREATININE 0.9 mg/dL (0.6-1.3); MAGNESIUM 1.7 mg/dL (1.8-2.4); PHOSPHORUS 3.1 mg/dL (2.5-4.9); POTASSIUM 3.4 mmol/L (3.5-5.1)
[2022-11-30] MEDS ORDERED: POTASSIUM CHLORIDE 20 MEQ TAB.PRT.SR PO ONE (08:00)
[2022-11-30] MEDS ORDERED: MAGNESIUM OXIDE 400 MG TABLET PO ONE (08:00)
[2022-11-30] MEDS: GENTAMICIN 120 MG in IV D5W 100 ML IV SCH ×2 (08:29→21:27)
[2022-11-30] MEDS: MONTELUKAST SODIUM (10MG) 10 MG TABLET PO SCH (08:30)
[2022-11-30] MEDS: PANTOPRAZOLE 40 MG TABLET.DR PO SCH (08:30)
[2022-11-30 16:10] VITALS: BP 114/77; TEMP 98.4; O2SAT 98
[2022-11-30] MEDS: CEFTRIAXONE 1 G in IV D5W 50 ML IV SCH (20:41)
[2022-12-01 08:00] VITALS: BP 100/49; TEMP 98; O2SAT 97
[2022-12-01] MEDS ORDERED: TRAM50TA2 PO (08:47)
[2022-12-01] MEDS ORDERED: CIPR500T5 PO (08:47)
[2022-12-01] MEDS: MONTELUKAST SODIUM (10MG) 10 MG TABLET PO SCH (08:58)
[2022-12-01] MEDS: PANTOPRAZOLE 40 MG TABLET.DR PO SCH (08:58)
[2022-12-01] MEDS: GENTAMICIN 120 MG in IV D5W 100 ML IV SCH (08:58)
[2022-12-01 16:00] VITALS: BP 128/70; TEMP 98; O2SAT 92
== END 2022-12-01 19:40 | disposition home or self-care (01) | DRG 854 ==
LOC: ER 13:16 → TELE 18:02 → MED 20:47
PROVIDERS: ADMIT Internal Medicine; ATTEND Internal Medicine
PROC: 0T768DZ Dilation of Right Ureter with Intraluminal Device, Via Natural or Artificial Opening Endoscopic (ICD-10-PCS; principal; 2022-11-27)
PROC: 05HB33Z Insertion of Infusion Device into Right Basilic Vein, Percutaneous Approach (ICD-10-PCS; 2022-11-28)
DX: A41.9 Sepsis, unspecified organism (principal); K57.32 Diverticulitis of large intestine without perforation or abscess without bleeding; N13.6 Pyonephrosis; K59.00 Constipation, unspecified; D25.9 Leiomyoma of uterus, unspecified; Z98.890 Other specified postprocedural states; Z85.3 Personal history of malignant neoplasm of breast; Z90.10 Acquired absence of unspecified breast and nipple; Z90.49 Acquired absence of other specified parts of digestive tract; Z88.8 Allergy status to other drugs, medicaments and biological substances; Z88.1 Allergy status to other antibiotic agents; Z91.018 Allergy to other foods; N20.0 Calculus of kidney; R59.0 Localized enlarged lymph nodes; B96.20 Unspecified Escherichia coli [E. coli] as the cause of diseases classified elsewhere; Z82.49 Family history of ischemic heart disease and other diseases of the circulatory system; Z87.442 Personal history of urinary calculi
CPT/HCPCS: 36410; 36415; 74018; 80048-TC; 80076-TC; 80170-TC; 81001; 83605-TC; 83690-TC; 83735-TC; 84100-TC; 84484-TC; 85025-TC; 85610-TC; 85730-TC; 86850-TC; 87081-TC; 87086-TC; A4217; C1769; C2617; G0378; J0690; J0692; J0696; J1100; J1580; J1885; J2270; J2405; J2704; J2765; J3010; J3360; J3490; J7030; J7060

== ENCOUNTER 2023-01-26 08:33 | Outpatient (CLI) | payer BC ==
[~2023-01-26 08:33] MED LIST changes: +ANAS1TAB50 PO; +CIPR500T5 PO; -HYDR-3976 PO; +IBUP-1953 PO; -NITR100C6 PO; -ONDA4TAB5 PO; +TRAM50TA2 PO
[2023-01-26 09:07] LABS: APPEARANCE,URINE SLIGHTLY CLOUDY (CLEAR); BILIRUBIN,URINE NEGATIVE (NEGATIVE); BLOOD, URINE 3+ Ery/uL (NEGATIVE); COLOR,URINE YELLOW (YELLOW); KETONES,URINE NEGATIVE (NEGATIVE); LEUKOCYTE ESTERASE ,URINE 2+ (NEGATIVE); NITRITE, URINE POSITIVE (NEGATIVE); PROTEIN,URINE 2+ mg/dl (NEGATIVE); UGLUCOSE NEGATIVE (NEGATIVE); UROBILINOGEN,URINE 0.2 EU/dL (0.2)
[2023-01-26 09:16] LABS: BASOPHILS # (AUTO) 0.1 K/uL (0.0-0.2); BASOPHILS % (AUTO) 0.8 % (0.0-2.0); EOSINOPHILS # (AUTO) 0.6 K/uL (0.0-0.7); HEMATOCRIT 39 % (33-45); HEMOGLOBIN 12.6 g/dL (11.5-14.8); LYMPHOCYTES # (AUTO) 1.3 K/uL (0.8-4.8); LYMPHOCYTES % (AUTO) 18.7 % (20.0-44.0); MEAN CORPUSCULAR HEMOGLOBIN 28 PG (26.0-33.0); MEAN CORPUSCULAR HGB CONC 32 g/dl (31.0-36.0); MEAN CORPUSCULAR VOLUME 87 fL (82-100); MONOCYTES # (AUTO) 0.6 K/uL (0.1-1.30); MONOCYTES % (AUTO) 8.6 % (2.0-12.0); NEUTROPHILS # (AUTO) 4.4 K/uL (1.8-8.9); NEUTROPHILS % (AUTO) 62.9 % (43.0-81.0); PLATELET COUNT (AUTO) 296 K/uL (150-450); RED BLOOD CELL COUNT(AUTO) 4.48 MIL/uL (4.0-5.2); RED CELL DISTRIBUTION WIDTH 13.7 % (11.5-15.0)
[2023-01-26 11:01] LABS: ADD URINE CULTURE YES; BACTERIA,URINE MANY /HPF (None Seen); RBC,URINE 51-80 /HPF (0-2); SQUAMOUS EPITHELIAL CELL,UR Few /HPF (None Seen); WBC,URINE 21-50 /HPF (0-3)
[2023-01-26 11:56] LABS: ALBUMIN 3.7 g/dL (3.4-5.0); BILIRUBIN,TOTAL 0.3 mg/dL (0.2-1.0); CALCIUM, SERUM 9.6 mg/dL (8.5-10.1); POTASSIUM 3.7 mmol/L (3.5-5.1); TOTAL PROTEIN, SERUM 8.7 g/dL (6.4-8.2)
== END 2023-01-26 23:59 | disposition home or self-care (01) ==
LOC: LAB 08:33
PROVIDERS: ATTEND Family Medicine
DX: Z01.818 Encounter for other preprocedural examination (principal)
CPT/HCPCS: 36415; 80053-TC; 81001; 85025-TC; 87086-TC

== ENCOUNTER 2024-07-19 07:20 | Inpatient (IN) | payer BC ==
[~2024-07-19] VITALS: Ht 157.5 cm; Wt 82.6 kg
[2024-07-19] MEDS ORDERED: CELLULOSE,OXIDIZED 1 EA PACK MC ONE (07:44)
[2024-07-19] MEDS ORDERED: BUPIVACAINE 0.25% 75 MG/30 ML VIAL ONE (07:45)
[2024-07-19] MEDS ORDERED: LIDOCAINE 1%-EPI 1:100,000 20 ML VIAL ONE (07:45)
[2024-07-19] MEDS ORDERED: ANESTHESIA TRAY IN PYXIS 1 EA TRAY MC ONE (07:45)
[2024-07-19] MEDS ORDERED: BUPIVACAINE 0.5 % PF 150 MG/30 ML VIAL ONE (07:45)
[2024-07-19] MEDS ORDERED: FENTANYL PF 100MCG/2ML AMPUL ONE (08:27)
[2024-07-19] MEDS ORDERED: MIDAZOLAM HCL 2 MG/2ML VIAL ONE (08:27)
[2024-07-19] MEDS ORDERED: HYDROMORPHONE 1 MG/1 ML DISP.SYRIN IV PRN (09:00)
[2024-07-19] MEDS ORDERED: ONDANSETRON HCL/PF 4 MG/2 ML VIAL IVP PRN ×2 (09:00→19:30)
[2024-07-19] MEDS ORDERED: MEROPENEM 1 G in IV NS 0.9% 100 ML IV ONE (10:00)
[2024-07-19] MEDS ORDERED: HYDROMORPHONE 1 MG/1 ML DISP.SYRIN ONE ×2 (12:05→13:15)
[2024-07-19] MEDS ORDERED: ACETAMINOPHEN 325 MG TABLET ONE ×2 (13:12→13:15)
[2024-07-19 14:30] VITALS: BP 116/77; TEMP 97.2; O2SAT 94
[2024-07-19 16:00] VITALS: BP 102/74; TEMP 97.6; O2SAT 98
[2024-07-19 18:30] VITALS: BP 120/77
[2024-07-19] MEDS: GABAPENTIN 300 MG CAPSULE PO SCH (19:00)
[2024-07-19] MEDS ORDERED: KETOROLAC TROMETHAMINE 15 MG/ML VIAL IV PRN (19:00)
[2024-07-19] MEDS ORDERED: ONDANSETRON HCL/PF 4 MG/2 ML VIAL IV PRN (19:00)
[2024-07-19] MEDS ORDERED: ACETAMINOPHEN 650 MG/20.3 ML UDC PO PRN (19:00)
[2024-07-19] MEDS ORDERED: ACETAMINOPHEN 325 MG TABLET PO PRN (19:30)
[2024-07-19] MEDS ORDERED: TRAMADOL HCL 50 MG TABLET PO PRN (19:30)
[2024-07-19] MEDS ORDERED: MAGNESIUM HYDROXIDE 30 ML UDC PO PRN (19:30)
[2024-07-19] MEDS ORDERED: MAG HYDROX/AL HYDROX/SIMETH 30 ML UDC PO PRN (19:30)
[2024-07-19] MEDS ORDERED: Z GUARD REMEDY 4 OZ OINT TP PRN (19:30)
[2024-07-19 20:00] VITALS: BP 112/74; TEMP 97.5; O2SAT 96
[2024-07-20 08:00] VITALS: BP 118/72; TEMP 98; O2SAT 97
[2024-07-20] MEDS: MONTELUKAST SODIUM (10MG) 10 MG TABLET PO SCH (08:29)
[2024-07-20] MEDS: PANTOPRAZOLE 40 MG TABLET.DR PO SCH (08:29)
[2024-07-20] MEDS: ANASTROZOLE 1 MG TABLET PO SCH (08:29)
[2024-07-20 10:41] LABS: BASOPHILS % (AUTO) 0.1 % (0.0-2.0); HEMATOCRIT 40 % (33-45); LYMPHOCYTES # (AUTO) 1.3 K/uL (0.8-4.8); LYMPHOCYTES % (AUTO) 7.1 % (20.0-44.0); MEAN CORPUSCULAR HEMOGLOBIN 29 PG (26.0-33.0); MEAN CORPUSCULAR HGB CONC 33 g/dl (31.0-36.0); MEAN CORPUSCULAR VOLUME 88 fL (82-100); MONOCYTES # (AUTO) 0.8 K/uL (0.1-1.30); NEUTROPHILS # (AUTO) 16.8 K/uL (1.8-8.9); NEUTROPHILS % (AUTO) 88.8 % (43.0-81.0); PLATELET COUNT (AUTO) 229 K/uL (150-450); RED BLOOD CELL COUNT(AUTO) 4.53 MIL/uL (4.0-5.2); RED CELL DISTRIBUTION WIDTH 13.8 % (11.5-15.0); WHITE BLOOD COUNT (AUTO) 18.9 K/uL (4.3-11.0)
[2024-07-20 10:54] LABS: CALCIUM, SERUM 8.8 mg/dL (8.5-10.1); CREATININE 0.9 mg/dL (0.6-1.3); MAGNESIUM 2.2 mg/dL (1.8-2.4); PHOSPHORUS 2.5 mg/dL (2.5-4.9); POTASSIUM 3.6 mmol/L (3.5-5.1)
[2024-07-20 13:54] VITALS: BP 118/80; TEMP 97.7; O2SAT 96
[2024-07-20 20:00] VITALS: BP 126/61; TEMP 97.5; O2SAT 97
[2024-07-20] MEDS ORDERED: GABAPENTIN 300 MG CAPSULE PO SCH (21:00)
[2024-07-20] MEDS ORDERED: GABAPENTIN 100 MG CAPSULE ONE (21:19)
[2024-07-20] MEDS: GABAPENTIN 100 MG CAPSULE PO SCH (21:41)
[2024-07-20 22:00] VITALS: BP 126/61; TEMP 97.5; O2SAT 97
[2024-07-21 07:00] VITALS: BP 110/71; TEMP 97.7; O2SAT 98
[2024-07-21 07:49] LABS: BASOPHILS # (AUTO) 0.1 K/uL (0.0-0.2); BASOPHILS % (AUTO) 0.9 % (0.0-2.0); EOSINOPHILS # (AUTO) 0.4 K/uL (0.0-0.7); EOSINOPHILS % (AUTO) 4.1 % (0.0-6.0); HEMATOCRIT 41 % (33-45); HEMOGLOBIN 13.4 g/dL (11.5-14.8); LYMPHOCYTES # (AUTO) 2.6 K/uL (0.8-4.8); LYMPHOCYTES % (AUTO) 24.6 % (20.0-44.0); MEAN CORPUSCULAR HEMOGLOBIN 29 PG (26.0-33.0); MEAN CORPUSCULAR HGB CONC 33 g/dl (31.0-36.0); MEAN CORPUSCULAR VOLUME 88 fL (82-100); MONOCYTES % (AUTO) 9.7 % (2.0-12.0); NEUTROPHILS # (AUTO) 6.4 K/uL (1.8-8.9); NEUTROPHILS % (AUTO) 60.7 % (43.0-81.0); PLATELET COUNT (AUTO) 245 K/uL (150-450); WHITE BLOOD COUNT (AUTO) 10.6 K/uL (4.3-11.0)
[2024-07-21 08:00] VITALS: BP 110/71; TEMP 97.7; O2SAT 98
== END 2024-07-21 14:00 | disposition home or self-care (01) | DRG 585 ==
LOC: DS 07:20 → MED 14:36
PROVIDERS: ADMIT Internal Medicine; ATTEND Internal Medicine
PROC: 0HST0ZZ Reposition Right Breast, Open Approach (ICD-10-PCS; principal; 2024-07-19)
PROC: 0HBT0ZZ Excision of Right Breast, Open Approach (ICD-10-PCS; 2024-07-19)
DX: N60.91 Unspecified benign mammary dysplasia of right breast (principal); Z82.49 Family history of ischemic heart disease and other diseases of the circulatory system; Z79.899 Other long term (current) drug therapy; K21.9 Gastro-esophageal reflux disease without esophagitis; D72.829 Elevated white blood cell count, unspecified
CPT/HCPCS: 36415; 71045-TC; 80048-TC; 83735-TC; 84100-TC; 85025-TC; A4217; G0378; J0690; J1100; J1171; J1885; J2185; J2250; J2405; J2704; J3010; J3490; J7030

== ENCOUNTER 2025-04-14 08:35 | Emergency (ER) | payer BC, OTHER ==
[~2025-04-14] VITALS: Ht 157.5 cm; Wt 81.6 kg
[~2025-04-14 08:35] MED LIST changes: -CIPR500T5 PO
[2025-04-14 08:45] VITALS: BP 146/81; TEMP 98.7; O2SAT 94
--- NOTE | 2025-04-14 08:53 | NUR ---
Appropriate/Responsive. GCS-15. Made aware of plan of care. Family at bedside
[2025-04-14 10:25] LABS: APPEARANCE,URINE CLEAR (CLEAR); BLOOD, URINE 3+ Ery/uL (NEGATIVE); LEUKOCYTE ESTERASE ,URINE 2+ (NEGATIVE); NITRITE, URINE POSITIVE (NEGATIVE); UGLUCOSE NEGATIVE (NEGATIVE)
[2025-04-14 10:26] LABS: ADD URINE CULTURE YES; SQUAMOUS EPITHELIAL CELL,UR Rare /HPF (None Seen)
[2025-04-14] MEDS ORDERED: CEPH-570 PO (10:58)
[2025-04-14] MEDS ORDERED: IBUP-1955 PO (10:58)
[2025-04-14] MEDS ORDERED: KETOROLAC TROMETHAMINE 15 MG/ML VIAL ONE (11:04)
[2025-04-14] MEDS: KETOROLAC TROMETHAMINE 15 MG/ML VIAL IM ONE (11:11)
--- NOTE | 2025-04-14 11:12 | NUR ---
NO ADVERSE REACTION NOTED
[2025-04-18] MEDS ORDERED: NITR100C6 PO (08:02)
--- NOTE | 2025-04-18 08:54 | NUR ---
SPOKE WITH MS BLAS, SHE DID GET A TEXT FROM PHARMACY FOR MACROBID AND WAS SURPRISED. I CONFIRMED WITH HER THAT SHE NEEDS THE NEW ANTIBIOTIC BASED ON THE CULTURE RESULT. SHE STATED THAT SHE WILL TAKE THE MACROBID INSTEAD.
== END 2025-04-14 11:13 | disposition home or self-care (01) ==
LOC: ER 08:37
DX: N39.0 Urinary tract infection, site not specified (principal); R50.9 Fever, unspecified; R00.0 Tachycardia, unspecified; E78.5 Hyperlipidemia, unspecified; I51.9 Heart disease, unspecified; Z79.811 Long term (current) use of aromatase inhibitors; Z79.899 Other long term (current) drug therapy; Z88.1 Allergy status to other antibiotic agents; Z91.018 Allergy to other foods
CPT/HCPCS: 99283; 96372; 87086; 81001; J1885; 87186-TC